=== PATIENT | female | born 1990 | race Caucasian/White ===

== ENCOUNTER 2018-09-21 20:18 | Inpatient (IN) | payer OTHER ==
[2018-09-21] MEDS ORDERED: CLINDAMYCIN 900 MG/D5W (PMX) 50 ML IVPB (21:01)
[2018-09-21] MEDS: HYDROmorphONE 0.5 MG/0.5 ML SYG IV (22:14)
[2018-09-21] MEDS: PIPER-TAZO 3.375 GM IV (PMX) 100 ML IVPB (22:14)
[2018-09-21] MEDS: ONDANSETRON 4 MG INJ IV (22:14)
[2018-09-21] MEDS: DIPHENHYDRAMINE 50 MG INJ IV ×2 (22:14→23:40)
[2018-09-21 22:25] LABS: ADD MAN DIFF? NO
[2018-09-21 22:29] LABS: ABNORMAL IP MESSAGE 1; BASOPHILS % 0.6 % (0.0-2.0); EOSINOPHILS # 0.2 10^3/ul (0.0-0.5); HEMATOCRIT 25.4 % (37.0-47.0); HEMOGLOBIN 8.2 g/dl (12.0-16.0); LYMPHOCYTES # 0.3 10^3/ul (0.8-2.9); LYMPHOCYTES % 3.7 % (15.0-51.0); MEAN CORPUSCULAR HEMOGLOBIN 29.9 pg (29.0-33.0); MEAN CORPUSCULAR HGB CONC 32.3 g/dl (32.0-37.0); MEAN CORPUSCULAR VOLUME 92.7 fl (82.0-101.0); MEAN PLATELET VOLUME 11.9 fl (7.4-10.4); MONOCYTE # 0.7 10^3/ul (0.3-0.9); MONOCYTES % 9.3 % (0.0-11.0); NEUTROPHIL # 5.9 10^3/ul (1.6-7.5); NEUTROPHILS % 83.3 % (39.0-77.0); PLATELET COUNT 139 10^3/UL (140-415); POSITIVE DIFF @See below; RED BLOOD COUNT 2.74 10^6/ul (4.20-5.40); RED CELL DISTRIBUTION WIDTH 15.5 % (11.5-14.5)
[2018-09-21 22:29] LABS: WHITE BLOOD COUNT 7.1 10^3/ul (4.8-10.8)
[2018-09-21 22:52] LABS: INR 1.07; PARTIAL THROMBOPLASTIN TIME 29.8 Sec (23.0-35.0); PT RATIO 1.1
[2018-09-21 22:54] LABS: ANION GAP 24 (5-13); BLOOD UREA NITROGEN 66 mg/dl (7-20); CALCIUM 8.4 mg/dl (8.4-10.2); CARBON DIOXIDE 19 mmol/L (21-31); CHLORIDE 92 mmol/L (97-110); CREATININE 8.86 mg/dl (0.44-1.00); Estimated GFR 5 mL/min (>60); POTASSIUM 5.1 mmol/L (3.5-5.1); SODIUM 135 mmol/L (135-144)
[2018-09-21 22:58] LABS: GLUCOSE 497 mg/dl (70-220)
[2018-09-21 23:04] LABS: TROPONIN-I < 0.012 ng/ml (0.000-0.120)
[2018-09-21] MEDS: VANCOMYCIN 1 GM (PMX) 250 ML IVPB (23:20)
[2018-09-21 23:25] LABS: MODE ROOM AIR; MetHgb Venous 0.2 %; Sample Type Blood venous; Site VENOUS LINE; Venous COHb 0.4 %; Venous Fraction OxyHgb 69.2 %; Venous Oxygen Sat 69.6 mmHG (55.0-75.0); Venous Total Hemglobin 8.7 g/dl
[2018-09-21] MEDS ORDERED: NS + KCL 40 MEQ 1,000 ML IV (23:35)
[2018-09-21] MEDS ORDERED: DEXTROSE 10 %/0.45 % NACL 1,000 ML IV (23:35)
[2018-09-21] MEDS ORDERED: SOD CHLORIDE 0.9% 1,000 ML IV (23:35)
[2018-09-21] MEDS ORDERED: D10/0.45% NACL + KCL 40 MEQ 1,000 ML IV (23:35)
[2018-09-21] MEDS: LACTATED RINGER'S 700 ML IV (23:53)
[2018-09-22] MEDS ORDERED: DEXTROSE 50% 50 ML SYRINGE IV
[2018-09-22] MEDS ORDERED: ACETAMINOPHEN 650MG/20.3ML CUP PO
[2018-09-22] MEDS ORDERED: BISACODYL (EC) 5 MG TAB PO
[2018-09-22] MEDS ORDERED: DOCUSATE SODIUM 100 MG CAP PO
[2018-09-22] MEDS: ALBUTEROL/IPRATROPIUM (NEB) 3 ML AMP NEB ×6 (01:00→20:37)
[2018-09-22] MEDS ORDERED: VANCOMYCIN IV PER PHARMACY XX (01:30)
[2018-09-22] MEDS: NS + KCL 30 MEQ 1,000 ML IV (02:09)
[2018-09-22] MEDS: INSULIN REGULAR, HUMAN 100 UNIT in SOD CHLORIDE 0.9% 100 ML IV (02:09)
[2018-09-22] MEDS: D10/0.45% NACL + KCL 30 MEQ 1,000 ML IV (02:10)
[2018-09-22] MEDS: HYDROmorphONE 1 MG/ML SYG IV ×6 (02:45→23:35)
[2018-09-22 02:54] LABS: MODE ROOM AIR; MetHgb Venous 0.3 %; Sample Type Blood venous; Site VENOUS LINE; Venous COHb 0.6 %; Venous Fraction OxyHgb 67.6 %; Venous Oxygen Sat 68.2 mmHG (55.0-75.0); Venous Total Hemglobin 8.2 g/dl
[2018-09-22] MEDS ORDERED: HYDROCODONE/APAP (5/325) TAB PO (03:00)
[2018-09-22 03:03] LABS: ANION GAP 20 (5-13); BLOOD UREA NITROGEN 66 mg/dl (7-20); CALCIUM 8.5 mg/dl (8.4-10.2); CARBON DIOXIDE 18 mmol/L (21-31); CHLORIDE 99 mmol/L (97-110); Estimated GFR 5 mL/min (>60); MAGNESIUM 2.3 mg/dl (1.7-2.5); POTASSIUM 4.9 mmol/L (3.5-5.1); SODIUM 137 mmol/L (135-144)
[2018-09-22 03:06] LABS: GLUCOSE 452 mg/dl (70-220)
[2018-09-22] MEDS ORDERED: CLONIDINE 0.3 MG/24 HR PATCH TRANSDERM (04:00)
[2018-09-22] MEDS ORDERED: DIPHENHYDRAMINE 50 MG INJ IV ×2 (04:30→12:30)
[2018-09-22] MEDS: NA BICARBONATE 8.4% 50 ML SYG IV (04:32)
[2018-09-22] MEDS: ACCU-CHEK XX ×7 (04:32→10:00)
[2018-09-22] MEDS: DIPHENHYDRAMINE 50 MG INJ IV ×4 (04:33→22:51)
[2018-09-22] MEDS: LORAZEPAM 2 MG INJ IV ×3 (04:34→20:45)
[2018-09-22 05:09] LABS: ADD MAN DIFF? NO
[2018-09-22 05:18] LABS: ABNORMAL IP MESSAGE 1; BASOPHILS % 0.5 % (0.0-2.0); EOSINOPHILS # 0.3 10^3/ul (0.0-0.5); EOSINOPHILS % 4.6 % (0.0-7.0); HEMATOCRIT 22.9 % (37.0-47.0); HEMOGLOBIN 7.5 g/dl (12.0-16.0); LYMPHOCYTES # 0.5 10^3/ul (0.8-2.9); LYMPHOCYTES % 7.5 % (15.0-51.0); MEAN CORPUSCULAR HEMOGLOBIN 30.4 pg (29.0-33.0); MEAN CORPUSCULAR HGB CONC 32.8 g/dl (32.0-37.0); MEAN CORPUSCULAR VOLUME 92.7 fl (82.0-101.0); MEAN PLATELET VOLUME 11.5 fl (7.4-10.4); MONOCYTE # 0.6 10^3/ul (0.3-0.9); MONOCYTES % 10.1 % (0.0-11.0); NEUTROPHIL # 4.7 10^3/ul (1.6-7.5); PLATELET COUNT 144 10^3/UL (140-415); RED BLOOD COUNT 2.47 10^6/ul (4.20-5.40); RED CELL DISTRIBUTION WIDTH 15.5 % (11.5-14.5)
[2018-09-22] MEDS: ONDANSETRON 4 MG INJ IV ×3 (05:27→17:48)
[2018-09-22] MEDS: INSULIN HUMAN REGULAR 100 UNIT in SOD CHLORIDE 0.9% 99 ML IV (05:30)
[2018-09-22] MEDS: PANTOPRAZOLE 40 MG INJ IV (05:31)
[2018-09-22 05:41] LABS: POSITIVE DIFF @See below
[2018-09-22 05:50] LABS: ANION GAP 19 (5-13); BLOOD UREA NITROGEN 71 mg/dl (7-20); CALCIUM 8.6 mg/dl (8.4-10.2); CARBON DIOXIDE 19 mmol/L (21-31); CHLORIDE 100 mmol/L (97-110); CREATININE 8.85 mg/dl (0.44-1.00); Estimated GFR 5 mL/min (>60); GLUCOSE 238 mg/dl (70-220); MAGNESIUM 2.3 mg/dl (1.7-2.5); PHOSPHORUS 7.5 mg/dl (2.5-4.9); POTASSIUM 4.6 mmol/L (3.5-5.1); SODIUM 138 mmol/L (135-144)
[2018-09-22 05:59] LABS: C-REACTIVE PROTEIN 5.7 mg/dl (0.0-0.9)
[2018-09-22] MEDS: VANCOMYCIN 500 MG (PMX) 100 ML IVPB (07:03)
[2018-09-22] MEDS: DEXTROSE 5%-0.45% NACL 1,000 ML IV (07:04)
[2018-09-22 07:29] LABS: ERYTHROCYTE SEDIMENTATION RATE 75 mm/Hr (0-20)
[2018-09-22] MEDS: PIPER-TAZO 2.25 GM (PMX) 50 ML IVPB ×2 (09:02→20:45)
[2018-09-22] MEDS: DEXTROSE 50% 50 ML SYRINGE IV ×2 (09:02→17:34)
[2018-09-22] MEDS ORDERED: GLUCOSE GEL 15 GRAM TUBE PO (10:30)
[2018-09-22] MEDS ORDERED: GLUCAGON 1 MG INJ IM (10:30)
[2018-09-22] MEDS ORDERED: GLUCOSE GEL 15 GRAM TUBE BUCCAL (10:30)
[2018-09-22 10:34] LABS: ANION GAP 19 (5-13); BLOOD UREA NITROGEN 73 mg/dl (7-20); CALCIUM 8.4 mg/dl (8.4-10.2); CARBON DIOXIDE 22 mmol/L (21-31); CHLORIDE 98 mmol/L (97-110); CREATININE 8.49 mg/dl (0.44-1.00); Estimated GFR 6 mL/min (>60); GLUCOSE 108 mg/dl (70-220); MAGNESIUM 2.3 mg/dl (1.7-2.5); PHOSPHORUS 8.2 mg/dl (2.5-4.9); POTASSIUM 5.4 mmol/L (3.5-5.1); SODIUM 139 mmol/L (135-144)
[2018-09-22] MEDS: INSULIN ASPART [NOVOLOG] 3 ML PEN SC ×5 (11:49→20:51)
[2018-09-22] MEDS ORDERED: DIPHENHYDRAMINE 25 MG CAP PO (12:00)
[2018-09-22] MEDS: NITROGLYCERIN (SL) 0.4 MG TAB SL ×2 (12:15→12:28)
[2018-09-22] MEDS: EPOETIN ALFA-EPBX (ESRD) 4,000 UNIT/ML VIAL SC (13:08)
[2018-09-22] MEDS: INSULIN GLARGINE [LANTus] (100 UNITS/ML) SYG SC (13:09)
[2018-09-22 13:39] LABS: ANION GAP 16 (5-13); BLOOD UREA NITROGEN 60 mg/dl (7-20); CALCIUM 6.8 mg/dl (8.4-10.2); CARBON DIOXIDE 16 mmol/L (21-31); CHLORIDE 107 mmol/L (97-110); CREATININE 7.11 mg/dl (0.44-1.00); Estimated GFR 7 mL/min (>60); GLUCOSE 210 mg/dl (70-220); MAGNESIUM 1.8 mg/dl (1.7-2.5); PHOSPHORUS 7.1 mg/dl (2.5-4.9); POTASSIUM 4.2 mmol/L (3.5-5.1); SODIUM 139 mmol/L (135-144)
[2018-09-22 16:03] LABS: ANION GAP 17 (5-13); BLOOD UREA NITROGEN 76 mg/dl (7-20); CALCIUM 8.9 mg/dl (8.4-10.2); CARBON DIOXIDE 22 mmol/L (21-31); CHLORIDE 100 mmol/L (97-110); CREATININE 9.36 mg/dl (0.44-1.00); Estimated GFR 5 mL/min (>60); GLUCOSE 111 mg/dl (70-220); MAGNESIUM 2.4 mg/dl (1.7-2.5); PHOSPHORUS 8.2 mg/dl (2.5-4.9); POTASSIUM 5.1 mmol/L (3.5-5.1); SODIUM 139 mmol/L (135-144)
[2018-09-22] MEDS: GLUCOSE GEL 15 GRAM TUBE PO (17:16)
[2018-09-22] MEDS ORDERED: DIPHENHYDRAMINE 50 MG INJ IM (17:30)
[2018-09-22] MEDS: HYDROmorphONE 0.5 MG/0.5 ML SYG IV (23:25)
[2018-09-22] MEDS: hydrALAzine 20 MG INJ IV (23:36)
[2018-09-23] MEDS: morphine 2 MG INJ IV ×2 (01:33→10:18)
[2018-09-23] MEDS: ALBUTEROL/IPRATROPIUM (NEB) 3 ML AMP NEB ×3 (01:54→08:10)
[2018-09-23] MEDS: LORAZEPAM 2 MG INJ IV ×4 (02:28→22:57)
[2018-09-23] MEDS: ONDANSETRON 4 MG INJ IV ×4 (02:28→10:47)
[2018-09-23] MEDS: hydrALAzine 20 MG INJ IV ×5 (02:29→15:41)
[2018-09-23] MEDS: ACCU-CHEK XX (02:29)
[2018-09-23] MEDS: HYDROmorphONE 1 MG/ML SYG IV ×2 (03:53→05:23)
[2018-09-23] MEDS: DIPHENHYDRAMINE 50 MG INJ IV ×3 (04:12→11:42)
[2018-09-23] MEDS ORDERED: AMLODIPINE 10 MG TAB PO (05:00)
[2018-09-23 05:19] LABS: ADD MAN DIFF? NO
[2018-09-23 05:22] LABS: ABNORMAL IP MESSAGE 1; BASOPHIL # 0.1 10^3/ul (0.0-0.1); BASOPHILS % 0.7 % (0.0-2.0); EOSINOPHILS # 0.4 10^3/ul (0.0-0.5); EOSINOPHILS % 4.8 % (0.0-7.0); HEMATOCRIT 23.1 % (37.0-47.0); HEMOGLOBIN 7.6 g/dl (12.0-16.0); LYMPHOCYTES # 0.6 10^3/ul (0.8-2.9); MEAN CORPUSCULAR HEMOGLOBIN 30.5 pg (29.0-33.0); MEAN CORPUSCULAR HGB CONC 32.9 g/dl (32.0-37.0); MEAN CORPUSCULAR VOLUME 92.8 fl (82.0-101.0); MEAN PLATELET VOLUME 11.1 fl (7.4-10.4); MONOCYTE # 0.9 10^3/ul (0.3-0.9); MONOCYTES % 12.4 % (0.0-11.0); NEUTROPHIL # 5.4 10^3/ul (1.6-7.5); NEUTROPHILS % 73.8 % (39.0-77.0); PLATELET COUNT 177 10^3/UL (140-415); RED BLOOD COUNT 2.49 10^6/ul (4.20-5.40); RED CELL DISTRIBUTION WIDTH 15.4 % (11.5-14.5)
[2018-09-23 05:22] LABS: WHITE BLOOD COUNT 7.3 10^3/ul (4.8-10.8)
[2018-09-23 05:33] LABS: POSITIVE DIFF @See below
[2018-09-23 05:54] LABS: ANION GAP 22 (5-13); BLOOD UREA NITROGEN 80 mg/dl (7-20); CALCIUM 8.8 mg/dl (8.4-10.2); CARBON DIOXIDE 19 mmol/L (21-31); CHLORIDE 97 mmol/L (97-110); CREATININE 9.47 mg/dl (0.44-1.00); Estimated GFR 5 mL/min (>60); GLUCOSE 166 mg/dl (70-220); POTASSIUM 5.5 mmol/L (3.5-5.1); SODIUM 138 mmol/L (135-144)
[2018-09-23] MEDS: PANTOPRAZOLE 40 MG INJ IV (06:07)
[2018-09-23 08:38] LABS: HEPATITIS B SURFACE ANTIBODY POSITIVE (NEGATIVE)
[2018-09-23] MEDS: INSULIN ASPART [NOVOLOG] 3 ML PEN SC ×5 (09:00→21:00)
[2018-09-23] MEDS: CLONIDINE 0.3 MG/24 HR PATCH TRANSDERM (10:19)
[2018-09-23] MEDS: INSULIN GLARGINE [LANTus] (100 UNITS/ML) SYG SC (10:20)
[2018-09-23 10:27] LABS: HEPATITIS B SURFACE ANTIGEN NEGATIVE (NEGATIVE)
[2018-09-23] MEDS ORDERED: DIPHENHYDRAMINE 25 MG CAP PO (10:30)
[2018-09-23] MEDS: HYDROmorphONE 0.5 MG/0.5 ML SYG IV ×4 (11:42→23:34)
[2018-09-23] MEDS: HEPARIN 1000 UNITS/ML 10 ML INJ CATHETER (11:50)
[2018-09-23] MEDS ORDERED: HYDROmorphONE 2 MG TAB PO (14:00)
[2018-09-23] MEDS: LABETALOL 200 MG TAB PO ×2 (14:00→21:00)
[2018-09-23] MEDS ORDERED: SPIRONOLACTONE 50 MG TAB PO (14:00)
[2018-09-23] MEDS: PANTOPRAZOLE (EC) 40 MG TAB PO ×2 (14:00→21:00)
[2018-09-23] MEDS ORDERED: ONDANSETRON 4 MG INJ IV (14:00)
[2018-09-23] MEDS: LEVALBUTEROL (NEB) 0.63 MG/3 ML AMP HHN ×3 (14:24→21:46)
[2018-09-23] MEDS ORDERED: CA CARBONATE (250 MG/ML) 5ML CUP PO (15:00)
[2018-09-23] MEDS: PIPER-TAZO 2.25 GM (PMX) 50 ML IVPB ×2 (15:41→20:48)
[2018-09-23] MEDS: ONDANSETRON INJ 8 MG in SOD CHLORIDE 0.9% 50 ML IV ×2 (17:14→22:03)
[2018-09-23] MEDS: niCARdipine-NS 0.1MG/ML DRIP 200 ML IV ×2 (18:14→19:44)
[2018-09-23] MEDS: TRIMETHOBENZAMIDE 100 MG/ML VIAL IM (18:21)
[2018-09-23] MEDS: niCARdipine 50 MG in SOD CHLORIDE 0.9% 480 ML IV (20:49)
[2018-09-23] MEDS: SPIRONOLACTONE 25 MG TAB PO (21:00)
[2018-09-23] MEDS: LABETALOL HCL 20MG INJ IV (23:42)
[2018-09-24] MEDS: LEVALBUTEROL (NEB) 0.63 MG/3 ML AMP HHN ×3 (01:00→08:24)
[2018-09-24] MEDS: DEXAMETHASONE 4 MG/ML 1 ML INJ IV (01:30)
[2018-09-24] MEDS ORDERED: AL HYDROX/MG HYDROX/SIMETH 30 ML CUP PO (01:30)
[2018-09-24] MEDS: ACCU-CHEK XX (02:00)
[2018-09-24] MEDS: niCARdipine 50 MG in SOD CHLORIDE 0.9% 480 ML IV (02:23)
[2018-09-24] MEDS: HYDROmorphONE 0.5 MG/0.5 ML SYG IV ×6 (03:19→18:47)
[2018-09-24] MEDS: LORAZEPAM 2 MG INJ IV ×5 (04:36→20:55)
[2018-09-24 05:12] LABS: ADD MAN DIFF? NO
[2018-09-24 05:19] LABS: ABNORMAL IP MESSAGE 1; BASOPHIL # 0.1 10^3/ul (0.0-0.1); BASOPHILS % 0.6 % (0.0-2.0); EOSINOPHILS # 0.1 10^3/ul (0.0-0.5); EOSINOPHILS % 1.1 % (0.0-7.0); HEMATOCRIT 24.1 % (37.0-47.0); HEMOGLOBIN 7.6 g/dl (12.0-16.0); LYMPHOCYTES # 0.3 10^3/ul (0.8-2.9); LYMPHOCYTES % 2.4 % (15.0-51.0); MEAN CORPUSCULAR HEMOGLOBIN 30.5 pg (29.0-33.0); MEAN CORPUSCULAR HGB CONC 31.5 g/dl (32.0-37.0); MEAN CORPUSCULAR VOLUME 96.8 fl (82.0-101.0); MEAN PLATELET VOLUME 10.9 fl (7.4-10.4); MONOCYTE # 0.6 10^3/ul (0.3-0.9); MONOCYTES % 5.1 % (0.0-11.0); NEUTROPHIL # 10.6 10^3/ul (1.6-7.5); NEUTROPHILS % 90.5 % (39.0-77.0); PLATELET COUNT 200 10^3/UL (140-415); RED BLOOD COUNT 2.49 10^6/ul (4.20-5.40); RED CELL DISTRIBUTION WIDTH 15.7 % (11.5-14.5)
[2018-09-24 05:19] LABS: WHITE BLOOD COUNT 11.8 10^3/ul (4.8-10.8)
[2018-09-24 05:21] LABS: POSITIVE DIFF @See below
[2018-09-24 05:47] LABS: ANION GAP 28 (5-13); BLOOD UREA NITROGEN 42 mg/dl (7-20); CALCIUM 9.7 mg/dl (8.4-10.2); CARBON DIOXIDE 15 mmol/L (21-31); CHLORIDE 100 mmol/L (97-110); CREATININE 7.09 mg/dl (0.44-1.00); Estimated GFR 7 mL/min (>60); GLUCOSE 269 mg/dl (70-220); POTASSIUM 4.7 mmol/L (3.5-5.1); SODIUM 143 mmol/L (135-144)
[2018-09-24 06:03] LABS: MAGNESIUM 2.5 mg/dl (1.7-2.5)
[2018-09-24 06:08] LABS: VANCOMYCIN,RANDOM 16.5 ug/ml
[2018-09-24] MEDS ORDERED: INSULIN ASPART [NOVOLOG] 3 ML PEN SC (07:35)
[2018-09-24] MEDS: INSULIN ASPART [NOVOLOG] 3 ML PEN SC ×7 (08:07→20:41)
[2018-09-24] MEDS: PIPER-TAZO 2.25 GM (PMX) 50 ML IVPB ×2 (08:37→20:55)
[2018-09-24] MEDS: FAMOTIDINE 20 MG INJ IV (08:37)
[2018-09-24] MEDS: SPIRONOLACTONE 25 MG TAB PO ×2 (08:51→20:29)
[2018-09-24] MEDS: LABETALOL 200 MG TAB PO ×2 (08:52→20:29)
[2018-09-24] MEDS: PANTOPRAZOLE (EC) 40 MG TAB PO (08:52)
[2018-09-24] MEDS ORDERED: AMLODIPINE 10 MG TAB PO (09:00)
[2018-09-24] MEDS ORDERED: LINAGLIPTIN 5 MG TABLET PO (09:00)
[2018-09-24] MEDS: ONDANSETRON INJ 8 MG in SOD CHLORIDE 0.9% 50 ML IV (09:20)
[2018-09-24] MEDS: INSULIN GLARGINE [LANTus] (100 UNITS/ML) SYG SC (10:34)
[2018-09-24] MEDS: PANTOPRAZOLE 40 MG INJ IV ×2 (10:53→17:09)
[2018-09-24] MEDS: hydrALAzine 20 MG INJ IV ×3 (10:54→21:10)
[2018-09-24] MEDS ORDERED: LEVALBUTEROL (NEB) 0.63 MG/3 ML AMP HHN (11:00)
[2018-09-24] MEDS ORDERED: ENALAPRILAT 1.25 MG INJ IV (11:00)
[2018-09-24] MEDS ORDERED: LIDOCAINE 1% (MPF) 5 ML VIAL SC (11:00)
[2018-09-24] MEDS: LABETALOL HCL 20MG INJ IV ×2 (13:38→17:24)
[2018-09-24] MEDS: VANCOMYCIN 1 GM 250 ML IVPB (15:15)
[2018-09-24] MEDS: METHYLNALTREXONE 12 MG/0.6 ML VIAL SC (15:56)
[2018-09-24 18:21] LABS: PTH CALCIUM 8.4 mg/dL (8.6-10.2)
[2018-09-24] MEDS: NPH, HUMAN INSULIN ISOPHANE 3ML VIAL SC (22:17)
[2018-09-25] MEDS: HYDROmorphONE 0.5 MG/0.5 ML SYG IV ×6 (00:31→21:14)
[2018-09-25] MEDS: LORAZEPAM 2 MG INJ IV ×3 (01:07→12:24)
[2018-09-25] MEDS: ACCU-CHEK XX (02:00)
[2018-09-25] MEDS: PANTOPRAZOLE 40 MG INJ IV ×2 (05:55→18:28)
[2018-09-25 06:50] LABS: ADD MAN DIFF? NO
[2018-09-25 07:20] LABS: ANION GAP 25 (5-13); BLOOD UREA NITROGEN 57 mg/dl (7-20); CALCIUM 8.7 mg/dl (8.4-10.2); CARBON DIOXIDE 17 mmol/L (21-31); CHLORIDE 100 mmol/L (97-110); CREATININE 8.19 mg/dl (0.44-1.00); Estimated GFR 6 mL/min (>60); GLUCOSE 279 mg/dl (70-220); MAGNESIUM 2.7 mg/dl (1.7-2.5); PHOSPHORUS 8.2 mg/dl (2.5-4.9); POTASSIUM 4.8 mmol/L (3.5-5.1); SODIUM 142 mmol/L (135-144)
[2018-09-25 08:44] LABS: ABNORMAL IP MESSAGE 1; BASOPHILS % 0.4 % (0.0-2.0); EOSINOPHILS # 0.2 10^3/ul (0.0-0.5); EOSINOPHILS % 2.4 % (0.0-7.0); HEMATOCRIT 22.1 % (37.0-47.0); HEMOGLOBIN 7.2 g/dl (12.0-16.0); LYMPHOCYTES # 0.4 10^3/ul (0.8-2.9); LYMPHOCYTES % 4.3 % (15.0-51.0); MEAN CORPUSCULAR HEMOGLOBIN 30.8 pg (29.0-33.0); MEAN CORPUSCULAR HGB CONC 32.6 g/dl (32.0-37.0); MEAN CORPUSCULAR VOLUME 94.4 fl (82.0-101.0); MEAN PLATELET VOLUME 10.7 fl (7.4-10.4); MONOCYTE # 0.8 10^3/ul (0.3-0.9); MONOCYTES % 8.7 % (0.0-11.0); NEUTROPHIL # 7.5 10^3/ul (1.6-7.5); NEUTROPHILS % 83.9 % (39.0-77.0); PLATELET COUNT 215 10^3/UL (140-415); RED BLOOD COUNT 2.34 10^6/ul (4.20-5.40); RED CELL DISTRIBUTION WIDTH 15.8 % (11.5-14.5)
[2018-09-25 08:47] LABS: POSITIVE DIFF @See below
[2018-09-25 08:57] LABS: PTH INTACT 844 pg/mL (14-64)
[2018-09-25] MEDS: PIPER-TAZO 2.25 GM (PMX) 50 ML IVPB (09:11)
[2018-09-25] MEDS: SPIRONOLACTONE 25 MG TAB PO ×2 (09:12→20:20)
[2018-09-25] MEDS: LABETALOL 200 MG TAB PO ×2 (09:12→20:19)
[2018-09-25] MEDS: INSULIN GLARGINE [LANTus] (100 UNITS/ML) SYG SC ×2 (09:37→14:38)
[2018-09-25] MEDS: INSULIN ASPART [NOVOLOG] 3 ML PEN SC ×7 (09:37→21:00)
[2018-09-25] MEDS ORDERED: DIPHENHYDRAMINE 50 MG INJ (09:55)
[2018-09-25] MEDS: DIPHENHYDRAMINE 50 MG INJ IV ×2 (10:15→11:36)
[2018-09-25] MEDS: HEPARIN 1000 UNITS/ML 10 ML INJ CATHETER (12:23)
[2018-09-25] MEDS: ONDANSETRON INJ 8 MG in SOD CHLORIDE 0.9% 50 ML IV (12:31)
[2018-09-25 14:53] LABS: HEMATOCRIT 21.8 % (37.0-47.0)
[2018-09-25] MEDS: EPOETIN ALFA-EPBX (ESRD) 10,000 UNIT/ML VIAL SC (17:44)
[2018-09-25] MEDS: IOHEXOL 300MG/ML 150 ML BTL (21:30)
[2018-09-26] MEDS: DIPHENHYDRAMINE 50 MG INJ IV ×5 (00:23→20:30)
[2018-09-26] MEDS: hydrALAzine 20 MG INJ IV ×4 (00:28→22:10)
[2018-09-26] MEDS: LORAZEPAM 2 MG INJ IV (00:36)
[2018-09-26] MEDS: HYDROmorphONE 0.5 MG/0.5 ML SYG IV ×6 (01:06→22:11)
[2018-09-26] MEDS: ACCU-CHEK XX (01:06)
[2018-09-26] MEDS: PANTOPRAZOLE 40 MG INJ IV ×2 (04:49→17:58)
[2018-09-26] MEDS: LABETALOL HCL 20MG INJ IV ×3 (07:28→18:08)
[2018-09-26] MEDS: INSULIN ASPART [NOVOLOG] 3 ML PEN SC ×7 (08:07→20:30)
[2018-09-26 08:35] LABS: WHITE BLOOD COUNT 5.5 10^3/ul (4.8-10.8)
[2018-09-26 08:35] LABS: ABNORMAL IP MESSAGE 1; HEMATOCRIT 20.2 % (37.0-47.0); MEAN CORPUSCULAR HGB CONC 32.7 g/dl (32.0-37.0); MEAN CORPUSCULAR VOLUME 94.8 fl (82.0-101.0); MEAN PLATELET VOLUME 10.1 fl (7.4-10.4); PLATELET COUNT 193 10^3/UL (140-415); RED BLOOD COUNT 2.13 10^6/ul (4.20-5.40); RED CELL DISTRIBUTION WIDTH 15.8 % (11.5-14.5)
[2018-09-26] MEDS: SPIRONOLACTONE 25 MG TAB PO ×2 (09:06→20:28)
[2018-09-26] MEDS: LABETALOL 200 MG TAB PO ×2 (09:07→20:30)
[2018-09-26 09:14] LABS: ANION GAP 14 (5-13); BLOOD UREA NITROGEN 38 mg/dl (7-20); CALCIUM 8.9 mg/dl (8.4-10.2); CARBON DIOXIDE 26 mmol/L (21-31); CHLORIDE 101 mmol/L (97-110); CREATININE 6.05 mg/dl (0.44-1.00); Estimated GFR 8 mL/min (>60); GLUCOSE 250 mg/dl (70-220); POTASSIUM 3.9 mmol/L (3.5-5.1); SODIUM 141 mmol/L (135-144)
[2018-09-26 09:27] LABS: ADD MAN DIFF? YES; HEMOGLOBIN 6.6 g/dl (12.0-16.0); POSITIVE DIFF @See below
[2018-09-26 10:02] LABS: ANISOCYTOSIS 1+ (0-0); EOSINOPHILS % (M) 4 % (0-7); LYMPHOCYTES #M 0.6 10^3/ul (0.8-2.9); LYMPHOCYTES % (M) 11 % (15-51); MONOCYTE #M 0.4 10^3/ul (0.3-0.9); MONOCYTES % (M) 8 % (0-11); PLATELET ESTIMATE NORMAL; POLYCHROMASIA 3+ (0-0); SEGMENTED NEUTROPHILS (M) % 77 % (39-77); SMUDGE%M 6 % (0-0)
[2018-09-26] MEDS: INSULIN GLARGINE [LANTus] (100 UNITS/ML) SYG SC (10:13)
[2018-09-26] MEDS: HEPARIN 1000 UNITS/ML 10 ML INJ CATHETER (13:20)
[2018-09-26] MEDS: TRIMETHOBENZAMIDE 100 MG/ML VIAL IM (13:24)
[2018-09-26 14:13] LABS: IRON 43 ug/dl (35-150)
[2018-09-26 14:22] LABS: % IRON SATURATION 28 % SAT (22-52); TOTAL IRON BINDING CAPACITY 156 ug/dl (241-421)
[2018-09-26 14:25] LABS: IMMEDIATE SPIN CROSSMATCH 1 2
[2018-09-26] MEDS: SOD CHLORIDE 0.9% 250 ML IV* (14:40)
[2018-09-26] MEDS: METHYLNALTREXONE 12 MG/0.6 ML VIAL SC (15:30)
[2018-09-26] MEDS: ONDANSETRON INJ 8 MG in SOD CHLORIDE 0.9% 50 ML IV (17:36)
[2018-09-26] MEDS: ERGOCALCIFEROL 50,000 UNIT CAP PO (20:30)
[2018-09-27] MEDS: LOPERAMIDE 2 MG CAP PO (00:22)
[2018-09-27] MEDS: LABETALOL HCL 20MG INJ IV ×5 (01:29→17:49)
[2018-09-27] MEDS: ACCU-CHEK XX (02:00)
[2018-09-27] MEDS: HYDROmorphONE 0.5 MG/0.5 ML SYG IV ×4 (02:14→14:08)
[2018-09-27] MEDS: hydrALAzine 20 MG INJ IV ×6 (02:15→17:49)
[2018-09-27] MEDS: DIPHENHYDRAMINE 50 MG INJ IV ×6 (04:18→22:46)
[2018-09-27] MEDS: PANTOPRAZOLE 40 MG INJ IV ×2 (06:12→18:40)
[2018-09-27 07:02] LABS: ADD MAN DIFF? NO
[2018-09-27 07:10] LABS: ABNORMAL IP MESSAGE 1; BASOPHILS % 0.9 % (0.0-2.0); EOSINOPHILS # 0.3 10^3/ul (0.0-0.5); EOSINOPHILS % 7.2 % (0.0-7.0); HEMATOCRIT 29.1 % (37.0-47.0); HEMOGLOBIN 9.6 g/dl (12.0-16.0); LYMPHOCYTES # 0.3 10^3/ul (0.8-2.9); LYMPHOCYTES % 7.4 % (15.0-51.0); MEAN CORPUSCULAR HEMOGLOBIN 29.9 pg (29.0-33.0); MEAN CORPUSCULAR VOLUME 90.7 fl (82.0-101.0); MEAN PLATELET VOLUME 9.7 fl (7.4-10.4); MONOCYTE # 0.5 10^3/ul (0.3-0.9); MONOCYTES % 10.4 % (0.0-11.0); NEUTROPHIL # 3.3 10^3/ul (1.6-7.5); NEUTROPHILS % 73.6 % (39.0-77.0); PLATELET COUNT 200 10^3/UL (140-415); RED BLOOD COUNT 3.21 10^6/ul (4.20-5.40); RED CELL DISTRIBUTION WIDTH 16.6 % (11.5-14.5)
[2018-09-27 07:10] LABS: WHITE BLOOD COUNT 4.4 10^3/ul (4.8-10.8)
[2018-09-27 07:26] LABS: POSITIVE DIFF @See below
[2018-09-27 07:33] LABS: ANION GAP 14 (5-13); BLOOD UREA NITROGEN 28 mg/dl (7-20); CARBON DIOXIDE 24 mmol/L (21-31); CHLORIDE 102 mmol/L (97-110); CREATININE 3.93 mg/dl (0.44-1.00); Estimated GFR 14 mL/min (>60); GLUCOSE 230 mg/dl (70-220); POTASSIUM 4.3 mmol/L (3.5-5.1); SODIUM 140 mmol/L (135-144)
[2018-09-27] MEDS: INSULIN ASPART [NOVOLOG] 3 ML PEN SC ×7 (07:55→20:46)
[2018-09-27] MEDS: SPIRONOLACTONE 25 MG TAB PO ×2 (08:28→23:27)
[2018-09-27] MEDS: LABETALOL 200 MG TAB PO ×2 (08:31→23:26)
[2018-09-27] MEDS: ONDANSETRON INJ 8 MG in SOD CHLORIDE 0.9% 50 ML IV ×3 (09:49→21:46)
[2018-09-27] MEDS: INSULIN GLARGINE [LANTus] (100 UNITS/ML) SYG SC ×2 (10:42→18:08)
[2018-09-27 11:24] LABS: OCCULT BLOOD STOOL POSITIVE (NEGATIVE)
[2018-09-27] MEDS: TRIMETHOBENZAMIDE 100 MG/ML VIAL IM (13:55)
[2018-09-27] MEDS: LOSARTAN 25 MG TAB PO (15:20)
[2018-09-27] MEDS: HYDROmorphONE 1 MG/ML SYG IV ×3 (15:20→21:37)
[2018-09-27] MEDS: HYOSCYAMINE 0.125 MG SUBL TAB PO ×2 (17:21→23:28)
[2018-09-27] MEDS: SUCRALFATE 1 GM TAB PO ×2 (17:21→23:26)
[2018-09-27] MEDS: EPOETIN ALFA-EPBX (ESRD) 10,000 UNIT/ML VIAL SC (18:39)
[2018-09-27] MEDS: HEPARIN 1000 UNITS/ML 10 ML INJ CATHETER (23:22)
[2018-09-28] MEDS: LOPERAMIDE 2 MG CAP PO (00:21)
[2018-09-28] MEDS: HYDROmorphONE 1 MG/ML SYG IV ×7 (00:26→21:02)
[2018-09-28] MEDS: DIPHENHYDRAMINE 50 MG INJ IV ×6 (01:15→21:04)
[2018-09-28] MEDS: hydrALAzine 20 MG INJ IV ×2 (01:19→05:42)
[2018-09-28] MEDS: ACCU-CHEK XX (01:21)
[2018-09-28] MEDS: LABETALOL HCL 20MG INJ IV (02:38)
[2018-09-28] MEDS: PANTOPRAZOLE 40 MG INJ IV ×2 (05:05→18:28)
[2018-09-28] MEDS: HYOSCYAMINE 0.125 MG SUBL TAB PO ×3 (05:06→23:06)
[2018-09-28] MEDS: ONDANSETRON INJ 8 MG in SOD CHLORIDE 0.9% 50 ML IV ×2 (05:37→14:17)
[2018-09-28 06:53] LABS: ADD MAN DIFF? NO
[2018-09-28 06:57] LABS: ABNORMAL IP MESSAGE 1; BASOPHIL # 0.1 10^3/ul (0.0-0.1); BASOPHILS % 1.3 % (0.0-2.0); EOSINOPHILS # 0.3 10^3/ul (0.0-0.5); EOSINOPHILS % 6.2 % (0.0-7.0); HEMATOCRIT 29.8 % (37.0-47.0); HEMOGLOBIN 9.6 g/dl (12.0-16.0); LYMPHOCYTES # 0.3 10^3/ul (0.8-2.9); LYMPHOCYTES % 5.9 % (15.0-51.0); MEAN CORPUSCULAR HEMOGLOBIN 29.5 pg (29.0-33.0); MEAN CORPUSCULAR HGB CONC 32.2 g/dl (32.0-37.0); MEAN CORPUSCULAR VOLUME 91.7 fl (82.0-101.0); MEAN PLATELET VOLUME 9.8 fl (7.4-10.4); MONOCYTE # 0.4 10^3/ul (0.3-0.9); MONOCYTES % 8.5 % (0.0-11.0); NEUTROPHIL # 3.7 10^3/ul (1.6-7.5); NEUTROPHILS % 77.9 % (39.0-77.0); PLATELET COUNT 210 10^3/UL (140-415); RED BLOOD COUNT 3.25 10^6/ul (4.20-5.40); RED CELL DISTRIBUTION WIDTH 16.4 % (11.5-14.5)
[2018-09-28 06:57] LABS: WHITE BLOOD COUNT 4.7 10^3/ul (4.8-10.8)
[2018-09-28 07:31] LABS: POSITIVE DIFF @See below
[2018-09-28 07:37] LABS: ANION GAP 15 (5-13); BLOOD UREA NITROGEN 18 mg/dl (7-20); CALCIUM 9.4 mg/dl (8.4-10.2); CARBON DIOXIDE 24 mmol/L (21-31); CHLORIDE 103 mmol/L (97-110); Estimated GFR 18 mL/min (>60); GLUCOSE 329 mg/dl (70-220); POTASSIUM 4.1 mmol/L (3.5-5.1); SODIUM 142 mmol/L (135-144)
[2018-09-28] MEDS: INSULIN ASPART [NOVOLOG] 3 ML PEN SC ×7 (07:55→20:39)
[2018-09-28] MEDS: SPIRONOLACTONE 25 MG TAB PO (09:14)
[2018-09-28] MEDS: SUCRALFATE 1 GM TAB PO ×4 (09:15→21:01)
[2018-09-28] MEDS: INSULIN GLARGINE [LANTus] (100 UNITS/ML) SYG SC (09:27)
[2018-09-28] MEDS: LOSARTAN 50 MG TAB PO ×2 (10:44→14:10)
[2018-09-28] MEDS: LABETALOL 200 MG TAB PO ×2 (10:44→23:04)
[2018-09-28] MEDS ORDERED: NIFEdipine (XL) 60 MG TAB PO (11:30)
[2018-09-28] MEDS: TRIMETHOBENZAMIDE 100 MG/ML VIAL IM (11:43)
[2018-09-28] MEDS: METHYLNALTREXONE 12 MG/0.6 ML VIAL SC (15:30)
[2018-09-28] MEDS: SPIRONOLACTONE 50 MG TAB PO (18:28)
[2018-09-29] MEDS: HYDROmorphONE 1 MG/ML SYG IV ×8 (00:15→21:06)
[2018-09-29] MEDS ORDERED: DIPHENHYDRAMINE 50 MG CAP PO (01:30)
[2018-09-29] MEDS: DIPHENHYDRAMINE 50 MG INJ IV ×3 (01:37→11:16)
[2018-09-29] MEDS: ACCU-CHEK XX (02:00)
[2018-09-29] MEDS: PANTOPRAZOLE 40 MG INJ IV ×2 (06:23→18:42)
[2018-09-29] MEDS: HYOSCYAMINE 0.125 MG SUBL TAB PO ×3 (06:23→21:09)
[2018-09-29] MEDS: SPIRONOLACTONE 50 MG TAB PO ×2 (06:23→18:42)
[2018-09-29 06:39] LABS: ADD MAN DIFF? NO
[2018-09-29 06:47] LABS: ABNORMAL IP MESSAGE 1; BASOPHIL # 0.1 10^3/ul (0.0-0.1); BASOPHILS % 1.2 % (0.0-2.0); EOSINOPHILS # 0.2 10^3/ul (0.0-0.5); EOSINOPHILS % 5.3 % (0.0-7.0); HEMATOCRIT 28.1 % (37.0-47.0); LYMPHOCYTES # 0.3 10^3/ul (0.8-2.9); LYMPHOCYTES % 7.2 % (15.0-51.0); MEAN CORPUSCULAR HEMOGLOBIN 29.7 pg (29.0-33.0); MEAN CORPUSCULAR VOLUME 92.7 fl (82.0-101.0); MEAN PLATELET VOLUME 9.6 fl (7.4-10.4); MONOCYTE # 0.4 10^3/ul (0.3-0.9); MONOCYTES % 9.9 % (0.0-11.0); NEUTROPHIL # 3.3 10^3/ul (1.6-7.5); NEUTROPHILS % 76.4 % (39.0-77.0); PLATELET COUNT 193 10^3/UL (140-415); RED BLOOD COUNT 3.03 10^6/ul (4.20-5.40); RED CELL DISTRIBUTION WIDTH 16.2 % (11.5-14.5)
[2018-09-29 06:47] LABS: WHITE BLOOD COUNT 4.3 10^3/ul (4.8-10.8)
[2018-09-29 06:56] LABS: POSITIVE DIFF @See below
[2018-09-29 07:02] LABS: PHOSPHORUS 3.9 mg/dl (2.5-4.9)
[2018-09-29 07:02] LABS: MAGNESIUM 2.2 mg/dl (1.7-2.5)
[2018-09-29 07:03] LABS: ANION GAP 16 (5-13); BLOOD UREA NITROGEN 16 mg/dl (7-20); CALCIUM 9.4 mg/dl (8.4-10.2); CARBON DIOXIDE 22 mmol/L (21-31); CHLORIDE 103 mmol/L (97-110); CREATININE 3.64 mg/dl (0.44-1.00); Estimated GFR 15 mL/min (>60); GLUCOSE 345 mg/dl (70-220); SODIUM 141 mmol/L (135-144)
[2018-09-29] MEDS: INSULIN ASPART [NOVOLOG] 3 ML PEN SC ×7 (08:30→20:37)
[2018-09-29] MEDS: SUCRALFATE 1 GM TAB PO ×4 (09:00→20:38)
[2018-09-29] MEDS: TRIMETHOBENZAMIDE 100 MG/ML VIAL IM ×2 (09:04→17:21)
[2018-09-29] MEDS: LOSARTAN 50 MG TAB PO (09:16)
[2018-09-29] MEDS: LABETALOL 200 MG TAB PO ×2 (09:18→20:39)
[2018-09-29] MEDS: INSULIN GLARGINE [LANTus] (100 UNITS/ML) SYG SC (09:29)
[2018-09-29] MEDS: HEPARIN 1000 UNITS/ML 10 ML INJ CATHETER (11:06)
[2018-09-29] MEDS: ONDANSETRON INJ 8 MG in SOD CHLORIDE 0.9% 50 ML IV ×2 (11:16→20:38)
[2018-09-29 17:43] LABS: HIV 1&2 ANTIBODY NEGATIVE (NEGATIVE)
[2018-09-29 18:20] LABS: COMPLEMENT C3 82 mg/dl (88-165); COMPLEMENT C4 48 mg/dl (14-44)
[2018-09-30] MEDS: DIPHENHYDRAMINE 50 MG INJ IV ×5 (00:09→23:53)
[2018-09-30] MEDS: HYDROmorphONE 1 MG/ML SYG IV ×9 (00:09→23:53)
[2018-09-30] MEDS: ACCU-CHEK XX (02:00)
[2018-09-30] MEDS: ONDANSETRON INJ 8 MG in SOD CHLORIDE 0.9% 50 ML IV ×2 (03:44→13:26)
[2018-09-30] MEDS: hydrALAzine 20 MG INJ IV (04:17)
[2018-09-30 04:51] LABS: AADO2 Arterial 32.9 mmHg (7.0-24.0); Allen Test ACCEPTAB; Arterial Base Excess -0.5 mmol/L (-3.0-3); Arterial Blood Gas Oxygen Sat 97.9 mmHG (95.0-98.0); Arterial COHb 0.8 % (0.0-3.0); Arterial Fraction of Oxyhgb 96.8 % (93.0-99.0); Arterial HCO3 24.2 mmol/L (22.0-26.0); Arterial MetHb 0.3 % (0.0-1.5); Arterial pCO2 39.7 mmhg (35-45); MODE NASAL CANNULA; Site Right Radial
[2018-09-30] MEDS: SPIRONOLACTONE 50 MG TAB PO ×2 (06:07→18:41)
[2018-09-30] MEDS: HYOSCYAMINE 0.125 MG SUBL TAB PO ×3 (06:07→21:28)
[2018-09-30] MEDS: PANTOPRAZOLE 40 MG INJ IV ×2 (06:07→18:40)
[2018-09-30 08:14] LABS: ADD MAN DIFF? NO
[2018-09-30 08:20] LABS: ABNORMAL IP MESSAGE 1; BASOPHIL # 0.1 10^3/ul (0.0-0.1); BASOPHILS % 0.9 % (0.0-2.0); EOSINOPHILS # 0.3 10^3/ul (0.0-0.5); EOSINOPHILS % 4.6 % (0.0-7.0); HEMOGLOBIN 9.4 g/dl (12.0-16.0); LYMPHOCYTES # 0.4 10^3/ul (0.8-2.9); MEAN CORPUSCULAR HEMOGLOBIN 29.7 pg (29.0-33.0); MEAN CORPUSCULAR HGB CONC 31.3 g/dl (32.0-37.0); MEAN CORPUSCULAR VOLUME 94.6 fl (82.0-101.0); MEAN PLATELET VOLUME 9.9 fl (7.4-10.4); MONOCYTE # 0.5 10^3/ul (0.3-0.9); MONOCYTES % 8.9 % (0.0-11.0); NEUTROPHIL # 4.6 10^3/ul (1.6-7.5); NEUTROPHILS % 79.4 % (39.0-77.0); PLATELET COUNT 206 10^3/UL (140-415); RED BLOOD COUNT 3.17 10^6/ul (4.20-5.40); RED CELL DISTRIBUTION WIDTH 16.3 % (11.5-14.5)
[2018-09-30 08:20] LABS: WHITE BLOOD COUNT 5.8 10^3/ul (4.8-10.8)
[2018-09-30 08:27] LABS: POSITIVE DIFF @See below
[2018-09-30] MEDS: SUCRALFATE 1 GM TAB PO ×4 (08:32→21:25)
[2018-09-30] MEDS: LOSARTAN 50 MG TAB PO (08:34)
[2018-09-30] MEDS: LABETALOL 200 MG TAB PO ×2 (08:34→21:27)
[2018-09-30] MEDS: CLONIDINE 0.3 MG/24 HR PATCH TRANSDERM (08:35)
[2018-09-30 08:37] LABS: ANION GAP 15 (5-13); BLOOD UREA NITROGEN 14 mg/dl (7-20); CALCIUM 9.5 mg/dl (8.4-10.2); CARBON DIOXIDE 23 mmol/L (21-31); CHLORIDE 103 mmol/L (97-110); CREATININE 3.92 mg/dl (0.44-1.00); Estimated GFR 14 mL/min (>60); GLUCOSE 203 mg/dl (70-220); POTASSIUM 3.9 mmol/L (3.5-5.1); SODIUM 141 mmol/L (135-144)
[2018-09-30] MEDS: INSULIN ASPART [NOVOLOG] 3 ML PEN SC ×7 (10:20→21:00)
[2018-09-30] MEDS: INSULIN GLARGINE [LANTus] (100 UNITS/ML) SYG SC ×3 (10:21→23:45)
[2018-09-30] MEDS: LABETALOL HCL 20MG INJ IV (11:04)
[2018-09-30] MEDS: HYDROmorphONE 4 MG TAB PO (11:33)
[2018-09-30] MEDS: METHYLNALTREXONE 12 MG/0.6 ML VIAL SC (15:10)
[2018-09-30] MEDS: TRIMETHOBENZAMIDE 100 MG/ML VIAL IM (18:40)
[2018-09-30] MEDS: DEXTROSE 50% 50 ML SYRINGE IV (19:44)
[2018-09-30] MEDS: EPOETIN ALFA-EPBX (ESRD) 10,000 UNIT/ML VIAL SC (21:31)
[2018-10-01] MEDS: ACCU-CHEK XX (02:00)
[2018-10-01] MEDS: hydrALAzine 20 MG INJ IV ×4 (02:18→19:46)
[2018-10-01] MEDS: HYDROmorphONE 1 MG/ML SYG IV ×6 (03:12→18:32)
[2018-10-01] MEDS: DIPHENHYDRAMINE 50 MG INJ IV ×6 (04:28→18:38)
[2018-10-01] MEDS: ONDANSETRON INJ 8 MG in SOD CHLORIDE 0.9% 50 ML IV ×2 (04:59→14:04)
[2018-10-01] MEDS: SPIRONOLACTONE 50 MG TAB PO ×2 (06:23→17:46)
[2018-10-01] MEDS: HYOSCYAMINE 0.125 MG SUBL TAB PO ×2 (06:23→13:03)
[2018-10-01] MEDS: PANTOPRAZOLE 40 MG INJ IV ×2 (06:23→17:46)
[2018-10-01] MEDS: INSULIN ASPART [NOVOLOG] 3 ML PEN SC ×7 (08:24→21:00)
[2018-10-01] MEDS: INSULIN GLARGINE [LANTus] (100 UNITS/ML) SYG SC ×2 (08:26→20:56)
[2018-10-01] MEDS: LABETALOL 200 MG TAB PO ×2 (08:26→20:54)
[2018-10-01] MEDS: LOSARTAN 50 MG TAB PO (08:26)
[2018-10-01] MEDS: SUCRALFATE 1 GM TAB PO ×4 (08:26→20:54)
[2018-10-01] MEDS: TRIMETHOBENZAMIDE 100 MG/ML VIAL IM ×2 (09:45→18:36)
[2018-10-01 12:01] LABS: ANA SCREEN NEGATIVE (NEGATIVE)
[2018-10-01] MEDS: HEPARIN 1000 UNITS/ML 10 ML INJ CATHETER (12:16)
[2018-10-01] MEDS: ARTIFICIAL TEARS 15 ML OPH BOTH EYES ×2 (12:42→19:32)
[2018-10-01] MEDS ORDERED: NEOMYC/POLYMYX/HC 10 ML OTIC SUSP (16:19)
[2018-10-01 18:21] LABS: ANTI-DNA (DOUBLE STRANDED) <95 U/mL (< 301)
== END 2018-10-01 21:10 | disposition home or self-care (01) | DRG 637 ==
LOC: MS1 09-23 03:45 → 2NE 10-01 01:55 → E/R 20:18 → ICU 23:42 → TEL 09-24 22:29
PROVIDERS: Family Medicine
PROC: 5A1D70Z Performance of Urinary Filtration, Intermittent, Less than 6 Hours Per Day (ICD-10-PCS; principal; 2018-09-23)
PROC: 30233N1 Transfusion of Nonautologous Red Blood Cells into Peripheral Vein, Percutaneous Approach (ICD-10-PCS; 2018-09-26)
DX: E10.10 Type 1 diabetes mellitus with ketoacidosis without coma (principal); N18.6 End stage renal disease; I12.0 Hypertensive chronic kidney disease with stage 5 chronic kidney disease or end stage renal disease; L03.115 Cellulitis of right lower limb; F11.23 Opioid dependence with withdrawal; N25.81 Secondary hyperparathyroidism of renal origin; E10.22 Type 1 diabetes mellitus with diabetic chronic kidney disease; E10.65 Type 1 diabetes mellitus with hyperglycemia; Z99.2 Dependence on renal dialysis; I16.0 Hypertensive urgency; E87.5 Hyperkalemia; D63.1 Anemia in chronic kidney disease; H54.8 Legal blindness, as defined in USA; S82.251D Displaced comminuted fracture of shaft of right tibia, subsequent encounter for closed fracture with routine healing; S82.451D Displaced comminuted fracture of shaft of right fibula, subsequent encounter for closed fracture with routine healing; W19.XXXD Unspecified fall, subsequent encounter; E83.9 Disorder of mineral metabolism, unspecified; E10.319 Type 1 diabetes mellitus with unspecified diabetic retinopathy without macular edema; E10.21 Type 1 diabetes mellitus with diabetic nephropathy; M43.9 Deforming dorsopathy, unspecified; M54.89 Other dorsalgia; E55.9 Vitamin D deficiency, unspecified; I27.20 Pulmonary hypertension, unspecified; K27.9 Peptic ulcer, site unspecified, unspecified as acute or chronic, without hemorrhage or perforation; K52.29 Other allergic and dietetic gastroenteritis and colitis
CPT/HCPCS: 36415; 36430; 36600; 71045; 72128; 72131; 73590; 73700; 74018; 74250; 80048; 80202; 82270; 82306; 82728; 82803; 82962; 83036; 83540; 83605; 83735; 83970; 84100; 84484; 84703; 85014; 85018; 85025; 85610; 85651; 85730; 86038; 86140; 86160; 86226; 86235; 86703; 86706; 86850; 86900; 86901; 86920; 87040-91; 87081; 87338; 87340; 90935; 92526; 92610; 93005; 93306; 93971; 94640; 94664; 96374; 96375; 96376; 97116; 97162; 97530; 99285-25

== ENCOUNTER 2018-10-04 14:46 | Inpatient (IN) | payer OTHER ==
[2018-10-04 17:24] LABS: ADD MAN DIFF? NO
[2018-10-04 17:29] LABS: ABNORMAL IP MESSAGE 1; BASOPHIL # 0.1 10^3/ul (0.0-0.1); BASOPHILS % 0.7 % (0.0-2.0); EOSINOPHILS # 0.2 10^3/ul (0.0-0.5); EOSINOPHILS % 2.9 % (0.0-7.0); HEMATOCRIT 26.3 % (37.0-47.0); HEMOGLOBIN 8.3 g/dl (12.0-16.0); LYMPHOCYTES # 0.4 10^3/ul (0.8-2.9); MEAN CORPUSCULAR HEMOGLOBIN 30.2 pg (29.0-33.0); MEAN CORPUSCULAR HGB CONC 31.6 g/dl (32.0-37.0); MEAN CORPUSCULAR VOLUME 95.6 fl (82.0-101.0); MONOCYTE # 0.8 10^3/ul (0.3-0.9); MONOCYTES % 11.2 % (0.0-11.0); NEUTROPHIL # 5.6 10^3/ul (1.6-7.5); NEUTROPHILS % 79.9 % (39.0-77.0); PLATELET COUNT 179 10^3/UL (140-415); RED BLOOD COUNT 2.75 10^6/ul (4.20-5.40); RED CELL DISTRIBUTION WIDTH 17.4 % (11.5-14.5)
[2018-10-04 17:31] LABS: POSITIVE DIFF @See below
[2018-10-04 17:39] LABS: AADO2 Venous 60.2 mmHg; MODE ROOM AIR; MetHgb Venous 0.4 %; Sample Type Blood venous; Site OTHER; Venous COHb 0.5 %; Venous Fraction OxyHgb 80.8 %; Venous Oxygen Sat 81.5 mmHG (55.0-75.0); Venous Total Hemglobin 9.7 g/dl
[2018-10-04] MEDS: ONDANSETRON 4 MG INJ IV ×2 (17:44→20:21)
[2018-10-04] MEDS: hydrALAzine 20 MG INJ IV (17:45)
[2018-10-04 17:46] LABS: ANION GAP 22 (5-13); BLOOD UREA NITROGEN 41 mg/dl (7-20); CALCIUM 10.1 mg/dl (8.4-10.2); CARBON DIOXIDE 12 mmol/L (21-31); CHLORIDE 103 mmol/L (97-110); CREATININE 9.03 mg/dl (0.44-1.00); Estimated GFR 5 mL/min (>60); POTASSIUM 4.9 mmol/L (3.5-5.1); SODIUM 137 mmol/L (135-144)
[2018-10-04] MEDS: HYDROmorphONE 1 MG/ML SYG IV ×2 (17:46→20:21)
[2018-10-04 17:48] LABS: GLUCOSE 438 mg/dl (70-220)
[2018-10-04] MEDS ORDERED: D10/0.45% NACL + KCL 40 MEQ 1,000 ML IV (17:55)
[2018-10-04] MEDS ORDERED: NS + KCL 40 MEQ 1,000 ML IV (17:55)
[2018-10-04] MEDS ORDERED: DEXTROSE 10%/0.45% NACL 1,000 ML IV (17:55)
[2018-10-04] MEDS ORDERED: DEXTROSE 50% 50 ML SYRINGE IV ×2 (18:00)
[2018-10-04] MEDS: FAMOTIDINE 20 MG INJ IV (18:29)
[2018-10-04] MEDS: LIDOCAINE/MYLANTA 40 ML BTL PO (18:29)
[2018-10-04] MEDS: LACTATED RINGER'S 700 ML IV (18:29)
[2018-10-04] MEDS: SOD CHLORIDE 0.9% 1,000 ML IV (18:29)
[2018-10-04 18:40] LABS: HEMOGLOBIN A1C 7.4 % (0-5.9)
[2018-10-04] MEDS ORDERED: NACL 0.9% 3 ML SYG IV (19:30)
[2018-10-04] MEDS: NS + KCL 30 MEQ 1,000 ML IV (19:30)
[2018-10-04] MEDS ORDERED: HYDROCODONE/APAP (5/325) TAB PO (19:30)
[2018-10-04] MEDS: INSULIN REGULAR, HUMAN 100 UNIT in SOD CHLORIDE 0.9% 100 ML IV (19:34)
[2018-10-04 19:46] LABS: MODE ROOM AIR; MetHgb Venous 0.4 %; Sample Type Blood venous; Site VENOUS LINE; Venous COHb 0.3 %; Venous Fraction OxyHgb 80.9 %; Venous Oxygen Sat 81.5 mmHG (55.0-75.0); Venous Total Hemglobin 9.5 g/dl
[2018-10-04 20:05] LABS: ANION GAP 25 (5-13); BLOOD UREA NITROGEN 39 mg/dl (7-20); CALCIUM 9.8 mg/dl (8.4-10.2); CARBON DIOXIDE 11 mmol/L (21-31); CHLORIDE 103 mmol/L (97-110); CREATININE 8.77 mg/dl (0.44-1.00); Estimated GFR 5 mL/min (>60); MAGNESIUM 2.4 mg/dl (1.7-2.5); SODIUM 139 mmol/L (135-144)
[2018-10-04 20:17] LABS: GLUCOSE 437 mg/dl (70-220)
[2018-10-04] MEDS: DIPHENHYDRAMINE 25 MG CAP PO (20:21)
[2018-10-04] MEDS ORDERED: DIPHENHYDRAMINE 50 MG INJ (21:10)
[2018-10-04] MEDS: HEPARIN 5,000 UNIT/1 ML VIAL SC (21:18)
[2018-10-04] MEDS ORDERED: DIPHENHYDRAMINE 50 MG INJ IV (21:30)
[2018-10-04 21:36] LABS: MODE ROOM AIR; MetHgb Venous 0.5 %; Sample Type Blood venous; Site VENOUS LINE; Venous COHb 0.3 %; Venous Fraction OxyHgb 79.6 %; Venous Oxygen Sat 80.2 mmHG (55.0-75.0); Venous Total Hemglobin 9.2 g/dl
[2018-10-04 22:07] LABS: ANION GAP 20 (5-13); BLOOD UREA NITROGEN 41 mg/dl (7-20); CALCIUM 9.7 mg/dl (8.4-10.2); CARBON DIOXIDE 14 mmol/L (21-31); CHLORIDE 106 mmol/L (97-110); CREATININE 8.68 mg/dl (0.44-1.00); Estimated GFR 5 mL/min (>60); GLUCOSE 353 mg/dl (70-220); MAGNESIUM 2.4 mg/dl (1.7-2.5); PHOSPHORUS 3.5 mg/dl (2.5-4.9); POTASSIUM 4.5 mmol/L (3.5-5.1); SODIUM 140 mmol/L (135-144)
[2018-10-04] MEDS: D10/0.45% NACL + KCL 30 MEQ 1,000 ML IV (22:35)
[2018-10-05] MEDS: ONDANSETRON 4 MG INJ IV ×4 (00:50→13:07)
[2018-10-05] MEDS: HYDROmorphONE 2 MG/ML SYG IV ×4 (00:51→20:06)
[2018-10-05] MEDS: DIPHENHYDRAMINE 50 MG INJ IV ×5 (00:51→11:13)
[2018-10-05] MEDS: NS + KCL 30 MEQ 1,000 ML IV (01:09)
[2018-10-05 02:57] LABS: MODE ROOM AIR; MetHgb Venous 0.4 %; Sample Type Blood venous; Site VENOUS LINE; Venous COHb 0.4 %; Venous Fraction OxyHgb 73.5 %; Venous Oxygen Sat 74.1 mmHG (55.0-75.0); Venous Total Hemglobin 9.1 g/dl
[2018-10-05 03:20] LABS: ANION GAP 12 (5-13); BLOOD UREA NITROGEN 44 mg/dl (7-20); CALCIUM 9.5 mg/dl (8.4-10.2); CARBON DIOXIDE 19 mmol/L (21-31); CHLORIDE 110 mmol/L (97-110); CREATININE 8.41 mg/dl (0.44-1.00); Estimated GFR 6 mL/min (>60); GLUCOSE 218 mg/dl (70-220); MAGNESIUM 2.4 mg/dl (1.7-2.5); PHOSPHORUS 3.1 mg/dl (2.5-4.9); POTASSIUM 5.2 mmol/L (3.5-5.1); SODIUM 141 mmol/L (135-144)
[2018-10-05] MEDS: hydrALAzine 20 MG INJ IV ×3 (05:04→20:01)
[2018-10-05] MEDS: D10/0.45% NACL + KCL 30 MEQ 1,000 ML IV (05:04)
[2018-10-05] MEDS: INSULIN GLARGINE [LANTus] (100 UNITS/ML) SYG SC (05:39)
[2018-10-05 05:56] LABS: MODE ROOM AIR; MetHgb Venous 0.6 %; Sample Type Blood venous; Site VENOUS LINE; Venous COHb 0.6 %; Venous Fraction OxyHgb 74.5 %; Venous Oxygen Sat 75.4 mmHG (55.0-75.0); Venous Total Hemglobin 8.8 g/dl
[2018-10-05 06:58] LABS: ANION GAP 11 (5-13); BLOOD UREA NITROGEN 42 mg/dl (7-20); CALCIUM 8.8 mg/dl (8.4-10.2); CARBON DIOXIDE 20 mmol/L (21-31); CHLORIDE 111 mmol/L (97-110); CREATININE 7.81 mg/dl (0.44-1.00); Estimated GFR 6 mL/min (>60); GLUCOSE 125 mg/dl (70-220); MAGNESIUM 2.2 mg/dl (1.7-2.5); PHOSPHORUS 2.9 mg/dl (2.5-4.9); POTASSIUM 4.6 mmol/L (3.5-5.1); SODIUM 142 mmol/L (135-144)
[2018-10-05] MEDS ORDERED: HYDROmorphONE 2 MG/ML SYG IV (08:30)
[2018-10-05] MEDS: HYDROmorphONE 0.5 MG/0.5 ML SYG IV (08:49)
[2018-10-05] MEDS: LABETALOL 200 MG TAB PO ×2 (09:30→21:41)
[2018-10-05] MEDS: HEPARIN 5,000 UNIT/1 ML VIAL SC ×2 (09:55→21:55)
[2018-10-05] MEDS: LOSARTAN 50 MG TAB PO ×2 (10:00→15:40)
[2018-10-05] MEDS ORDERED: GLUCAGON 1 MG INJ IM (10:00)
[2018-10-05] MEDS ORDERED: GLUCOSE GEL 15 GRAM TUBE PO (10:00)
[2018-10-05] MEDS: DEXTROSE 50% 50 ML SYRINGE IV (10:04)
[2018-10-05] MEDS: CLONIDINE 0.3 MG/24 HR PATCH TRANSDERM ×2 (11:06→22:54)
[2018-10-05 11:12] LABS: ANION GAP 11 (5-13); BLOOD UREA NITROGEN 34 mg/dl (7-20); CALCIUM 9.2 mg/dl (8.4-10.2); CARBON DIOXIDE 23 mmol/L (21-31); CHLORIDE 105 mmol/L (97-110); CREATININE 6.57 mg/dl (0.44-1.00); Estimated GFR 7 mL/min (>60); MAGNESIUM 2.2 mg/dl (1.7-2.5); PHOSPHORUS 2.7 mg/dl (2.5-4.9); POTASSIUM 4.9 mmol/L (3.5-5.1); SODIUM 139 mmol/L (135-144)
[2018-10-05] MEDS: INSULIN ASPART [NOVOLOG] 3 ML PEN SC ×3 (11:30→22:03)
[2018-10-05 11:45] LABS: GLUCOSE 738 mg/dl (70-220)
[2018-10-05] MEDS: LABETALOL HCL 20MG INJ IV (12:22)
[2018-10-05] MEDS: SUCRALFATE 1 GM TAB PO ×3 (13:08→21:45)
[2018-10-05] MEDS: HYOSCYAMINE 0.125 MG SUBL TAB PO (14:13)
[2018-10-05 14:29] LABS: ANION GAP 10 (5-13); BLOOD UREA NITROGEN 16 mg/dl (7-20); CARBON DIOXIDE 18 mmol/L (21-31); CHLORIDE 113 mmol/L (97-110); CREATININE 3.19 mg/dl (0.44-1.00); Estimated GFR 17 mL/min (>60); GLUCOSE 102 mg/dl (70-220); MAGNESIUM 1.7 mg/dl (1.7-2.5); PHOSPHORUS 2.2 mg/dl (2.5-4.9); POTASSIUM 4.1 mmol/L (3.5-5.1); SODIUM 141 mmol/L (135-144)
[2018-10-05] MEDS: LORAZEPAM 2 MG INJ IV (15:39)
[2018-10-05] MEDS: CALCIUM CARBONATE 500 MG CHEW TAB PO (15:39)
[2018-10-05] MEDS: PANTOPRAZOLE (EC) 40 MG TAB PO (18:06)
[2018-10-05 18:37] LABS: ANION GAP 14 (5-13); BLOOD UREA NITROGEN 19 mg/dl (7-20); CALCIUM 9.4 mg/dl (8.4-10.2); CARBON DIOXIDE 21 mmol/L (21-31); CHLORIDE 103 mmol/L (97-110); CREATININE 4.44 mg/dl (0.44-1.00); Estimated GFR 12 mL/min (>60); GLUCOSE 253 mg/dl (70-220); MAGNESIUM 2.1 mg/dl (1.7-2.5); PHOSPHORUS 3.2 mg/dl (2.5-4.9); POTASSIUM 5.2 mmol/L (3.5-5.1); SODIUM 138 mmol/L (135-144)
[2018-10-05] MEDS: ARTIFICIAL TEARS 15 ML OPH BOTH EYES (19:05)
[2018-10-05] MEDS: SPIRONOLACTONE 50 MG TAB PO (21:43)
[2018-10-05 23:41] LABS: ANION GAP 13 (5-13); BLOOD UREA NITROGEN 22 mg/dl (7-20); CALCIUM 9.2 mg/dl (8.4-10.2); CARBON DIOXIDE 22 mmol/L (21-31); CHLORIDE 103 mmol/L (97-110); CREATININE 4.83 mg/dl (0.44-1.00); Estimated GFR 11 mL/min (>60); GLUCOSE 274 mg/dl (70-220); MAGNESIUM 2.1 mg/dl (1.7-2.5); PHOSPHORUS 3.2 mg/dl (2.5-4.9); POTASSIUM 4.8 mmol/L (3.5-5.1); SODIUM 138 mmol/L (135-144)
[2018-10-06] MEDS: DIPHENHYDRAMINE 50 MG INJ IV ×5 (00:14→17:53)
[2018-10-06] MEDS: ONDANSETRON 4 MG INJ IV ×6 (00:15→20:20)
[2018-10-06] MEDS: HYDROmorphONE 2 MG/ML SYG IV ×5 (00:15→20:20)
[2018-10-06] MEDS: ARTIFICIAL TEARS 15 ML OPH BOTH EYES (04:19)
[2018-10-06] MEDS: PANTOPRAZOLE (EC) 40 MG TAB PO (05:15)
[2018-10-06] MEDS: INSULIN ASPART [NOVOLOG] 3 ML PEN SC ×7 (08:21→20:24)
[2018-10-06] MEDS: HEPARIN 5,000 UNIT/1 ML VIAL SC ×2 (08:22→20:22)
[2018-10-06] MEDS: SPIRONOLACTONE 50 MG TAB PO ×2 (08:22→20:23)
[2018-10-06] MEDS: SUCRALFATE 1 GM TAB PO ×4 (08:23→20:25)
[2018-10-06] MEDS: LABETALOL 200 MG TAB PO ×2 (08:25→20:22)
[2018-10-06 09:15] LABS: ADD MAN DIFF? NO
[2018-10-06 09:20] LABS: WHITE BLOOD COUNT 5.7 10^3/ul (4.8-10.8)
[2018-10-06 09:20] LABS: ABNORMAL IP MESSAGE 1; BASOPHIL # 0.1 10^3/ul (0.0-0.1); BASOPHILS % 1.1 % (0.0-2.0); EOSINOPHILS # 0.3 10^3/ul (0.0-0.5); EOSINOPHILS % 4.6 % (0.0-7.0); HEMOGLOBIN 9.3 g/dl (12.0-16.0); LYMPHOCYTES # 0.4 10^3/ul (0.8-2.9); LYMPHOCYTES % 7.5 % (15.0-51.0); MEAN CORPUSCULAR HEMOGLOBIN 30.5 pg (29.0-33.0); MEAN CORPUSCULAR HGB CONC 32.1 g/dl (32.0-37.0); MEAN CORPUSCULAR VOLUME 95.1 fl (82.0-101.0); MONOCYTE # 0.6 10^3/ul (0.3-0.9); MONOCYTES % 10.9 % (0.0-11.0); NEUTROPHIL # 4.3 10^3/ul (1.6-7.5); NEUTROPHILS % 75.4 % (39.0-77.0); PLATELET COUNT 160 10^3/UL (140-415); RED BLOOD COUNT 3.05 10^6/ul (4.20-5.40); RED CELL DISTRIBUTION WIDTH 17.6 % (11.5-14.5)
[2018-10-06 09:25] LABS: POSITIVE DIFF @See below
[2018-10-06 09:47] LABS: ALBUMIN 4.2 g/dl (3.3-4.9); ALKALINE PHOSPHATASE 170 IU/L (42-121); ANION GAP 16 (5-13); ASPARTATE AMINO TRANSFERASE 24 IU/L (15-46); BLOOD UREA NITROGEN 24 mg/dl (7-20); CALCIUM 9.7 mg/dl (8.4-10.2); CARBON DIOXIDE 21 mmol/L (21-31); CHLORIDE 104 mmol/L (97-110); CREATININE 5.43 mg/dl (0.44-1.00); Estimated GFR 9 mL/min (>60); GLUCOSE 262 mg/dl (70-220); MAGNESIUM 2.2 mg/dl (1.7-2.5); PHOSPHORUS 4.1 mg/dl (2.5-4.9); POTASSIUM 5.3 mmol/L (3.5-5.1); SODIUM 141 mmol/L (135-144); TOTAL PROTEIN 7.7 g/dl (6.1-8.1)
[2018-10-06 09:48] LABS: ALANINE AMINOTRANSFERASE < 6 IU/L (13-69)
[2018-10-06 10:16] LABS: ANISOCYTOSIS 2+ (0-0); BASOPHILS % (M) 1 % (0-2); BURR CELLS 1+ (0-0); EOSINOPHILS % (M) 5 % (0-7); GIANT THROMBO% (M) 1 % (0-0); LYMPHOCYTES #M 0.3 10^3/ul (0.8-2.9); LYMPHOCYTES % (M) 6 % (15-51); MONOCYTE #M 0.6 10^3/ul (0.3-0.9); MONOCYTES % (M) 11 % (0-11); OVALOCYTES 1+ (0-0); PLATELET ESTIMATE NORMAL; POIKILOCYTOSIS 1+ (0-0); POLYCHROMASIA 2+ (0-0); SEGMENTED NEUTROPHILS (M) % 77 % (39-77); SMUDGE%M 45 % (0-0)
[2018-10-06] MEDS: INSULIN GLARGINE [LANTus] (100 UNITS/ML) SYG SC (10:30)
[2018-10-06] MEDS: LORAZEPAM 2 MG INJ IV ×2 (11:19→20:21)
[2018-10-06] MEDS: DEXTROSE 50% 50 ML SYRINGE IV ×2 (17:05→20:16)
[2018-10-06 17:40] LABS: GLUCOSE 86 mg/dl (70-220)
[2018-10-06] MEDS: PANTOPRAZOLE 40 MG INJ IV (17:52)
[2018-10-07] MEDS: DIPHENHYDRAMINE 50 MG INJ IV ×3 (01:04→09:23)
[2018-10-07] MEDS: HYDROmorphONE 2 MG/ML SYG IV ×3 (01:04→09:23)
[2018-10-07] MEDS: ONDANSETRON 4 MG INJ IV ×5 (01:04→22:25)
[2018-10-07] MEDS: LORAZEPAM 2 MG INJ IV ×3 (03:24→22:25)
[2018-10-07 05:10] LABS: ADD MAN DIFF? NO
[2018-10-07 05:16] LABS: ABNORMAL IP MESSAGE 1; BASOPHIL # 0.1 10^3/ul (0.0-0.1); BASOPHILS % 1.3 % (0.0-2.0); EOSINOPHILS # 0.3 10^3/ul (0.0-0.5); EOSINOPHILS % 6.7 % (0.0-7.0); HEMATOCRIT 25.6 % (37.0-47.0); HEMOGLOBIN 8.1 g/dl (12.0-16.0); LYMPHOCYTES # 0.5 10^3/ul (0.8-2.9); LYMPHOCYTES % 11.7 % (15.0-51.0); MEAN CORPUSCULAR HEMOGLOBIN 30.2 pg (29.0-33.0); MEAN CORPUSCULAR HGB CONC 31.6 g/dl (32.0-37.0); MEAN CORPUSCULAR VOLUME 95.5 fl (82.0-101.0); MEAN PLATELET VOLUME 10.2 fl (7.4-10.4); MONOCYTE # 0.8 10^3/ul (0.3-0.9); MONOCYTES % 18.4 % (0.0-11.0); NEUTROPHIL # 2.7 10^3/ul (1.6-7.5); NEUTROPHILS % 61.5 % (39.0-77.0); PLATELET COUNT 186 10^3/UL (140-415); RED BLOOD COUNT 2.68 10^6/ul (4.20-5.40); RED CELL DISTRIBUTION WIDTH 17.2 % (11.5-14.5)
[2018-10-07 05:16] LABS: WHITE BLOOD COUNT 4.5 10^3/ul (4.8-10.8)
[2018-10-07] MEDS: PANTOPRAZOLE 40 MG INJ IV ×2 (05:20→21:04)
[2018-10-07 05:23] LABS: POSITIVE DIFF @See below
[2018-10-07 06:43] LABS: ANION GAP 10 (5-13); BLOOD UREA NITROGEN 25 mg/dl (7-20); CALCIUM 9.3 mg/dl (8.4-10.2); CARBON DIOXIDE 25 mmol/L (21-31); CHLORIDE 105 mmol/L (97-110); CREATININE 6.77 mg/dl (0.44-1.00); Estimated GFR 7 mL/min (>60); GLUCOSE 68 mg/dl (70-220); MAGNESIUM 2.3 mg/dl (1.7-2.5); PHOSPHORUS 4.2 mg/dl (2.5-4.9); POTASSIUM 4.8 mmol/L (3.5-5.1); SODIUM 140 mmol/L (135-144)
[2018-10-07] MEDS: SUCRALFATE 1 GM TAB PO ×4 (07:55→21:06)
[2018-10-07] MEDS: SPIRONOLACTONE 50 MG TAB PO ×2 (07:55→21:04)
[2018-10-07] MEDS: CALCIUM CARBONATE 500 MG CHEW TAB PO (07:56)
[2018-10-07] MEDS: LOSARTAN 50 MG TAB PO (07:56)
[2018-10-07] MEDS: INSULIN ASPART [NOVOLOG] 3 ML PEN SC ×5 (08:00→21:00)
[2018-10-07] MEDS: LABETALOL 200 MG TAB PO ×2 (08:01→21:05)
[2018-10-07] MEDS: HEPARIN 5,000 UNIT/1 ML VIAL SC ×2 (08:04→21:29)
[2018-10-07] MEDS: GLUCOSE GEL 15 GRAM TUBE BUCCAL ×2 (08:13→17:39)
[2018-10-07] MEDS: INSULIN GLARGINE [LANTus] (100 UNITS/ML) SYG SC (09:15)
[2018-10-07 09:42] LABS: GLUCOSE 95 mg/dl (70-220)
[2018-10-07] MEDS ORDERED: DIPHENHYDRAMINE 25 MG CAP PO (11:30)
[2018-10-07] MEDS: TRIMETHOBENZAMIDE 100 MG/ML VIAL IM (12:09)
[2018-10-07] MEDS: HYOSCYAMINE 0.125 MG SUBL TAB PO (12:10)
[2018-10-07] MEDS: HYDROmorphONE 1 MG/ML SYG IV ×2 (13:13→21:06)
[2018-10-07] MEDS: ERGOCALCIFEROL (8000 UNITS/ML PO SYG) PO (14:56)
[2018-10-07] MEDS: HYDROmorphONE 2 MG TAB PO (17:10)
[2018-10-07] MEDS: ERYTHROMYCIN BASE (DR) 250 MG CAP PO ×2 (17:11→21:05)
[2018-10-07] MEDS: EPOETIN ALFA-EPBX (ESRD) 10,000 UNIT/ML VIAL SC (17:12)
[2018-10-07] MEDS: DEXTROSE 50% 50 ML SYRINGE IV (18:07)
[2018-10-07] MEDS ORDERED: LORAZEPAM 2 MG INJ IV (18:30)
[2018-10-07] MEDS ORDERED: HYDROCODONE/APAP (5/325) TAB PO (18:30)
[2018-10-07] MEDS: DOXAZOSIN 1 MG TAB PO (21:05)
[2018-10-08] MEDS: HYDROmorphONE 2 MG TAB PO (02:24)
[2018-10-08] MEDS: PANTOPRAZOLE 40 MG INJ IV ×2 (05:10→17:24)
[2018-10-08] MEDS: HYDROmorphONE 1 MG/ML SYG IV ×3 (05:10→22:28)
[2018-10-08 06:16] LABS: ADD MAN DIFF? NO
[2018-10-08 06:19] LABS: ABNORMAL IP MESSAGE 1; BASOPHIL # 0.1 10^3/ul (0.0-0.1); BASOPHILS % 1.2 % (0.0-2.0); EOSINOPHILS # 0.3 10^3/ul (0.0-0.5); EOSINOPHILS % 6.4 % (0.0-7.0); HEMATOCRIT 28.4 % (37.0-47.0); HEMOGLOBIN 8.9 g/dl (12.0-16.0); LYMPHOCYTES # 0.4 10^3/ul (0.8-2.9); LYMPHOCYTES % 8.9 % (15.0-51.0); MEAN CORPUSCULAR HEMOGLOBIN 29.9 pg (29.0-33.0); MEAN CORPUSCULAR HGB CONC 31.3 g/dl (32.0-37.0); MEAN CORPUSCULAR VOLUME 95.3 fl (82.0-101.0); MEAN PLATELET VOLUME 10.5 fl (7.4-10.4); MONOCYTE # 0.6 10^3/ul (0.3-0.9); MONOCYTES % 12.5 % (0.0-11.0); NEUTROPHIL # 3.5 10^3/ul (1.6-7.5); NEUTROPHILS % 70.6 % (39.0-77.0); PLATELET COUNT 200 10^3/UL (140-415); RED BLOOD COUNT 2.98 10^6/ul (4.20-5.40); RED CELL DISTRIBUTION WIDTH 17.2 % (11.5-14.5)
[2018-10-08] MEDS: LORAZEPAM 2 MG INJ IV ×2 (06:21→20:49)
[2018-10-08 06:49] LABS: ANION GAP 13 (5-13); BLOOD UREA NITROGEN 32 mg/dl (7-20); CALCIUM 9.2 mg/dl (8.4-10.2); CARBON DIOXIDE 22 mmol/L (21-31); CHLORIDE 102 mmol/L (97-110); CREATININE 7.59 mg/dl (0.44-1.00); Estimated GFR 6 mL/min (>60); GLUCOSE 249 mg/dl (70-220); POTASSIUM 5.1 mmol/L (3.5-5.1); SODIUM 137 mmol/L (135-144)
[2018-10-08 07:01] LABS: POSITIVE DIFF @See below
[2018-10-08 07:09] LABS: PHOSPHORUS 4.5 mg/dl (2.5-4.9)
[2018-10-08 07:09] LABS: MAGNESIUM 2.2 mg/dl (1.7-2.5)
[2018-10-08] MEDS: INSULIN GLARGINE [LANTus] (100 UNITS/ML) SYG SC (08:00)
[2018-10-08] MEDS: INSULIN ASPART [NOVOLOG] 3 ML PEN SC ×4 (08:08→20:47)
[2018-10-08] MEDS: SUCRALFATE 1 GM TAB PO ×4 (08:54→20:49)
[2018-10-08] MEDS: SPIRONOLACTONE 50 MG TAB PO ×2 (08:54→20:48)
[2018-10-08] MEDS: LABETALOL 200 MG TAB PO ×4 (08:55→23:37)
[2018-10-08] MEDS: LOSARTAN 50 MG TAB PO ×2 (08:55→12:30)
[2018-10-08] MEDS: HEPARIN 5,000 UNIT/1 ML VIAL SC ×2 (08:55→21:07)
[2018-10-08] MEDS: ERYTHROMYCIN BASE (DR) 250 MG CAP PO ×3 (08:55→20:48)
[2018-10-08] MEDS: HEPARIN 1000 UNITS/ML 10 ML INJ CATHETER (12:08)
[2018-10-08] MEDS: DOXAZOSIN 1 MG TAB PO (20:48)
[2018-10-08] MEDS: LABETALOL HCL 20MG INJ IV (23:37)
[2018-10-08] MEDS: hydrALAzine 20 MG INJ IV (23:51)
[2018-10-09] MEDS: hydrALAzine 20 MG INJ IV ×2 (01:20→13:59)
[2018-10-09] MEDS: ONDANSETRON 4 MG INJ IV ×2 (02:30→22:36)
[2018-10-09] MEDS: LABETALOL HCL 20MG INJ IV (03:09)
[2018-10-09] MEDS: LORAZEPAM 2 MG INJ IV ×2 (04:27→22:36)
[2018-10-09] MEDS: PANTOPRAZOLE 40 MG INJ IV ×2 (06:29→17:41)
[2018-10-09] MEDS: HYDROmorphONE 1 MG/ML SYG IV ×3 (06:30→20:52)
[2018-10-09] MEDS: INSULIN ASPART [NOVOLOG] 3 ML PEN SC ×4 (07:49→20:47)
[2018-10-09] MEDS: INSULIN GLARGINE [LANTus] (100 UNITS/ML) SYG SC ×2 (07:49→20:47)
[2018-10-09] MEDS: ERYTHROMYCIN BASE (DR) 250 MG CAP PO ×3 (08:33→20:34)
[2018-10-09] MEDS: SUCRALFATE 1 GM TAB PO ×4 (08:33→20:33)
[2018-10-09] MEDS: LOSARTAN 50 MG TAB PO (08:33)
[2018-10-09] MEDS: LABETALOL 200 MG TAB PO ×2 (08:36→20:33)
[2018-10-09] MEDS: HEPARIN 5,000 UNIT/1 ML VIAL SC ×2 (08:47→20:46)
[2018-10-09] MEDS: SPIRONOLACTONE 50 MG TAB PO ×2 (08:54→20:33)
[2018-10-09] MEDS ORDERED: HYDROmorphONE 2 MG/ML SYG IV ×2 (10:30→16:30)
[2018-10-09 11:04] LABS: ADD MAN DIFF? NO
[2018-10-09 11:07] LABS: WHITE BLOOD COUNT 6.5 10^3/ul (4.8-10.8)
[2018-10-09 11:07] LABS: ABNORMAL IP MESSAGE 1; BASOPHIL # 0.1 10^3/ul (0.0-0.1); BASOPHILS % 1.1 % (0.0-2.0); EOSINOPHILS # 0.3 10^3/ul (0.0-0.5); HEMATOCRIT 26.2 % (37.0-47.0); HEMOGLOBIN 8.2 g/dl (12.0-16.0); LYMPHOCYTES # 0.4 10^3/ul (0.8-2.9); MEAN CORPUSCULAR HEMOGLOBIN 30.3 pg (29.0-33.0); MEAN CORPUSCULAR HGB CONC 31.3 g/dl (32.0-37.0); MEAN CORPUSCULAR VOLUME 96.7 fl (82.0-101.0); MEAN PLATELET VOLUME 10.3 fl (7.4-10.4); MONOCYTE # 0.8 10^3/ul (0.3-0.9); MONOCYTES % 12.6 % (0.0-11.0); PLATELET COUNT 200 10^3/UL (140-415); RED BLOOD COUNT 2.71 10^6/ul (4.20-5.40)
[2018-10-09 11:08] LABS: POSITIVE DIFF @See below
[2018-10-09 11:26] LABS: ANION GAP 15 (5-13); BLOOD UREA NITROGEN 25 mg/dl (7-20); CALCIUM 8.8 mg/dl (8.4-10.2); CARBON DIOXIDE 20 mmol/L (21-31); CHLORIDE 103 mmol/L (97-110); CREATININE 5.29 mg/dl (0.44-1.00); Estimated GFR 10 mL/min (>60); GLUCOSE 361 mg/dl (70-220); POTASSIUM 4.7 mmol/L (3.5-5.1); SODIUM 138 mmol/L (135-144)
[2018-10-09] MEDS: EPOETIN ALFA-EPBX (ESRD) 10,000 UNIT/ML VIAL SC (17:40)
[2018-10-09] MEDS: DOXAZOSIN 1 MG TAB PO (20:34)
[2018-10-10] MEDS: hydrALAzine 20 MG INJ IV ×2 (02:20→17:21)
[2018-10-10] MEDS: HYDROmorphONE 1 MG/ML SYG IV ×4 (02:31→21:36)
[2018-10-10] MEDS: LABETALOL HCL 20MG INJ IV ×2 (04:33→18:22)
[2018-10-10] MEDS: HYDROmorphONE 2 MG TAB PO ×2 (05:38→18:18)
[2018-10-10 06:28] LABS: ADD MAN DIFF? NO
[2018-10-10] MEDS: LORAZEPAM 2 MG INJ IV ×2 (06:34→22:56)
[2018-10-10] MEDS: PANTOPRAZOLE 40 MG INJ IV ×2 (06:34→17:22)
[2018-10-10 06:37] LABS: WHITE BLOOD COUNT 5.9 10^3/ul (4.8-10.8)
[2018-10-10 06:37] LABS: ABNORMAL IP MESSAGE 1; BASOPHIL # 0.1 10^3/ul (0.0-0.1); BASOPHILS % 1.2 % (0.0-2.0); EOSINOPHILS # 0.5 10^3/ul (0.0-0.5); EOSINOPHILS % 8.5 % (0.0-7.0); HEMATOCRIT 26.9 % (37.0-47.0); HEMOGLOBIN 8.5 g/dl (12.0-16.0); LYMPHOCYTES # 0.5 10^3/ul (0.8-2.9); LYMPHOCYTES % 8.2 % (15.0-51.0); MEAN CORPUSCULAR HEMOGLOBIN 30.1 pg (29.0-33.0); MEAN CORPUSCULAR HGB CONC 31.6 g/dl (32.0-37.0); MEAN CORPUSCULAR VOLUME 95.4 fl (82.0-101.0); MEAN PLATELET VOLUME 10.4 fl (7.4-10.4); MONOCYTE # 0.7 10^3/ul (0.3-0.9); MONOCYTES % 11.9 % (0.0-11.0); NEUTROPHIL # 4.1 10^3/ul (1.6-7.5); PLATELET COUNT 238 10^3/UL (140-415); RED BLOOD COUNT 2.82 10^6/ul (4.20-5.40); RED CELL DISTRIBUTION WIDTH 16.8 % (11.5-14.5)
[2018-10-10 06:42] LABS: POSITIVE DIFF @See below
[2018-10-10 07:00] LABS: ANION GAP 15 (5-13); BLOOD UREA NITROGEN 31 mg/dl (7-20); CALCIUM 9.4 mg/dl (8.4-10.2); CARBON DIOXIDE 22 mmol/L (21-31); CHLORIDE 101 mmol/L (97-110); CREATININE 6.66 mg/dl (0.44-1.00); Estimated GFR 7 mL/min (>60); GLUCOSE 201 mg/dl (70-220); POTASSIUM 4.5 mmol/L (3.5-5.1); SODIUM 138 mmol/L (135-144)
[2018-10-10] MEDS: INSULIN ASPART [NOVOLOG] 3 ML PEN SC ×5 (08:03→21:00)
[2018-10-10] MEDS: SUCRALFATE 1 GM TAB PO ×4 (08:54→22:24)
[2018-10-10] MEDS: ERYTHROMYCIN BASE (DR) 250 MG CAP PO ×3 (08:55→21:47)
[2018-10-10] MEDS: SPIRONOLACTONE 50 MG TAB PO ×2 (08:55→21:49)
[2018-10-10] MEDS: LABETALOL 200 MG TAB PO ×3 (09:00→21:48)
[2018-10-10] MEDS: LOSARTAN 50 MG TAB PO (09:00)
[2018-10-10] MEDS: INSULIN GLARGINE [LANTus] (100 UNITS/ML) SYG SC ×2 (09:13→22:00)
[2018-10-10] MEDS: HEPARIN 5,000 UNIT/1 ML VIAL SC ×2 (09:16→21:00)
[2018-10-10 10:26] LABS: C-PEPTIDE <0.10 ng/mL (0.80-3.85)
[2018-10-10] MEDS: DIPHENHYDRAMINE 50 MG INJ IV ×4 (11:16→21:00)
[2018-10-10] MEDS ORDERED: DIPHENHYDRAMINE 50 MG INJ IV (19:30)
[2018-10-10] MEDS: HEPARIN 1000 UNITS/ML 10 ML INJ CATHETER (19:42)
[2018-10-10] MEDS: DOXAZOSIN 1 MG TAB PO (21:49)
[2018-10-11] MEDS: DIPHENHYDRAMINE 50 MG INJ IV (00:55)
[2018-10-11] MEDS: HYDROmorphONE 1 MG/ML SYG IV ×5 (02:35→19:18)
[2018-10-11 05:36] LABS: ADD MAN DIFF? NO
[2018-10-11 05:37] LABS: ABNORMAL IP MESSAGE 1; BASOPHIL # 0.1 10^3/ul (0.0-0.1); BASOPHILS % 1.7 % (0.0-2.0); EOSINOPHILS # 0.5 10^3/ul (0.0-0.5); EOSINOPHILS % 8.8 % (0.0-7.0); HEMATOCRIT 26.9 % (37.0-47.0); HEMOGLOBIN 8.4 g/dl (12.0-16.0); LYMPHOCYTES # 0.6 10^3/ul (0.8-2.9); LYMPHOCYTES % 9.3 % (15.0-51.0); MEAN CORPUSCULAR HEMOGLOBIN 29.5 pg (29.0-33.0); MEAN CORPUSCULAR HGB CONC 31.2 g/dl (32.0-37.0); MEAN CORPUSCULAR VOLUME 94.4 fl (82.0-101.0); MONOCYTE # 0.7 10^3/ul (0.3-0.9); NEUTROPHIL # 4.1 10^3/ul (1.6-7.5); PLATELET COUNT 224 10^3/UL (140-415); RED BLOOD COUNT 2.85 10^6/ul (4.20-5.40); RED CELL DISTRIBUTION WIDTH 17.2 % (11.5-14.5)
[2018-10-11 05:37] LABS: WHITE BLOOD COUNT 5.9 10^3/ul (4.8-10.8)
[2018-10-11 05:46] LABS: POSITIVE DIFF @See below
[2018-10-11 06:00] LABS: ANION GAP 12 (5-13); BLOOD UREA NITROGEN 16 mg/dl (7-20); CALCIUM 9.1 mg/dl (8.4-10.2); CARBON DIOXIDE 27 mmol/L (21-31); CHLORIDE 100 mmol/L (97-110); CREATININE 4.19 mg/dl (0.44-1.00); Estimated GFR 13 mL/min (>60); GLUCOSE 168 mg/dl (70-220); SODIUM 139 mmol/L (135-144)
[2018-10-11] MEDS: PANTOPRAZOLE 40 MG INJ IV ×2 (06:42→17:07)
[2018-10-11] MEDS: INSULIN ASPART [NOVOLOG] 3 ML PEN SC ×7 (06:42→21:00)
[2018-10-11] MEDS: SEVELAMER CARBONATE 800 MG TABLET PO ×3 (08:36→17:07)
[2018-10-11] MEDS: LOSARTAN 50 MG TAB PO (08:36)
[2018-10-11] MEDS: SPIRONOLACTONE 50 MG TAB PO ×2 (08:37→20:18)
[2018-10-11] MEDS: LABETALOL 200 MG TAB PO ×2 (08:37→20:19)
[2018-10-11] MEDS: SUCRALFATE 1 GM TAB PO ×4 (08:37→21:19)
[2018-10-11] MEDS: ERYTHROMYCIN BASE (DR) 250 MG CAP PO ×3 (08:38→17:01)
[2018-10-11] MEDS: INSULIN GLARGINE [LANTus] (100 UNITS/ML) SYG SC ×2 (08:46→21:00)
[2018-10-11] MEDS: HEPARIN 5,000 UNIT/1 ML VIAL SC ×2 (08:46→20:28)
[2018-10-11] MEDS: LORAZEPAM 2 MG INJ IV (08:55)
[2018-10-11] MEDS: HYDROmorphONE 2 MG TAB PO (10:12)
[2018-10-11] MEDS: GLUCOSE GEL 15 GRAM TUBE PO (11:50)
[2018-10-11] MEDS: BACLOFEN 10 MG TAB PO ×3 (12:22→20:17)
[2018-10-11] MEDS: ONDANSETRON 4 MG INJ IV ×2 (12:44→19:17)
[2018-10-11] MEDS: EPOETIN ALFA-EPBX (ESRD) 10,000 UNIT/ML VIAL SC (17:02)
[2018-10-11] MEDS: LOPERAMIDE 2 MG CAP PO (17:07)
[2018-10-11] MEDS: DOXAZOSIN 1 MG TAB PO (20:17)
[2018-10-11] MEDS ORDERED: KETOROLAC 30 MG INJ IV (21:32)
[2018-10-11] MEDS: hydrALAzine 20 MG INJ IV (22:08)
[2018-10-12] MEDS ORDERED: CLONIDINE 0.3 MG/24 HR PATCH TRANSDERM (10:00)
== END 2018-10-11 22:15 | disposition home or self-care (01) | DRG 637 ==
LOC: E/R 14:46 → 6WM 10-05 20:10 → ICU 18:00
PROVIDERS: Internal Medicine
DX: E10.10 Type 1 diabetes mellitus with ketoacidosis without coma (principal); N18.6 End stage renal disease; S82.201A Unspecified fracture of shaft of right tibia, initial encounter for closed fracture; N25.81 Secondary hyperparathyroidism of renal origin; K31.84 Gastroparesis; E87.5 Hyperkalemia; E10.22 Type 1 diabetes mellitus with diabetic chronic kidney disease; S82.401A Unspecified fracture of shaft of right fibula, initial encounter for closed fracture; D63.1 Anemia in chronic kidney disease; E10.319 Type 1 diabetes mellitus with unspecified diabetic retinopathy without macular edema; E10.40 Type 1 diabetes mellitus with diabetic neuropathy, unspecified; E10.42 Type 1 diabetes mellitus with diabetic polyneuropathy; E55.9 Vitamin D deficiency, unspecified; Z99.2 Dependence on renal dialysis; G89.4 Chronic pain syndrome; H54.7 Unspecified visual loss; F41.9 Anxiety disorder, unspecified; R19.7 Diarrhea, unspecified
CPT/HCPCS: 36415; 71045; 73590; 80048; 80053; 82803; 82947; 82962; 83036; 83605; 83735; 84100; 84681; 84703; 85025; 86674; 87040-91; 87045; 87075; 87081; 87177; 87205; 90935; 92526; 92610; 96374; 96375; 97110; 97161; 99285-25

== ENCOUNTER 2018-10-13 14:00 | Inpatient (IN) | payer OTHER ==
[2018-10-13] MEDS: ACCU-CHEK XX ×2 (06:30→07:30)
[2018-10-13] MEDS: SUCRALFATE 1 GM TAB PO (07:00)
[2018-10-13] MEDS: ERYTHROMYCIN BASE (DR) 250 MG CAP PO (07:00)
[2018-10-13] MEDS: LABETALOL 200 MG TAB PO (07:01)
[2018-10-13] MEDS: BACLOFEN 10 MG TAB PO (07:01)
[2018-10-13 15:45] LABS: ADD MAN DIFF? NO
[2018-10-13 15:49] LABS: WHITE BLOOD COUNT 8.3 10^3/ul (4.8-10.8)
[2018-10-13 15:49] LABS: ABNORMAL IP MESSAGE 1; BASOPHIL # 0.1 10^3/ul (0.0-0.1); BASOPHILS % 0.8 % (0.0-2.0); EOSINOPHILS # 0.1 10^3/ul (0.0-0.5); EOSINOPHILS % 1.4 % (0.0-7.0); HEMATOCRIT 28.7 % (37.0-47.0); HEMOGLOBIN 8.4 g/dl (12.0-16.0); LYMPHOCYTES # 0.3 10^3/ul (0.8-2.9); LYMPHOCYTES % 3.1 % (15.0-51.0); MEAN CORPUSCULAR HEMOGLOBIN 29.9 pg (29.0-33.0); MEAN CORPUSCULAR HGB CONC 29.3 g/dl (32.0-37.0); MEAN CORPUSCULAR VOLUME 102.1 fl (82.0-101.0); MEAN PLATELET VOLUME 10.8 fl (7.4-10.4); MONOCYTE # 0.7 10^3/ul (0.3-0.9); MONOCYTES % 8.2 % (0.0-11.0); NEUTROPHIL # 7.1 10^3/ul (1.6-7.5); PLATELET COUNT 223 10^3/UL (140-415); RED BLOOD COUNT 2.81 10^6/ul (4.20-5.40); RED CELL DISTRIBUTION WIDTH 18.5 % (11.5-14.5)
[2018-10-13] MEDS: hydrALAzine 20 MG INJ IV (15:53)
[2018-10-13] MEDS: SOD CHLORIDE 0.9% 700 ML IV (15:53)
[2018-10-13 15:58] LABS: POSITIVE DIFF @See below
[2018-10-13 15:59] LABS: MODE ROOM AIR; MetHgb Venous 0.2 %; Sample Type Blood venous; Site OTHER; Venous COHb 0.3 %; Venous Fraction OxyHgb 81.1 %; Venous Oxygen Sat 81.5 mmHG (55.0-75.0); Venous Total Hemglobin 9.6 g/dl
[2018-10-13] MEDS: ONDANSETRON 4 MG INJ IV ×2 (16:14→20:21)
[2018-10-13] MEDS ORDERED: D10/0.45% NACL + KCL 30 MEQ 1,000 ML IV (16:15)
[2018-10-13] MEDS ORDERED: NS + KCL 30 MEQ 1,000 ML IV (16:15)
[2018-10-13] MEDS ORDERED: D10/0.45% NACL + KCL 40 MEQ 1,000 ML IV ×2 (16:15→19:23)
[2018-10-13] MEDS ORDERED: DEXTROSE 10%/0.45% NACL 1,000 ML IV ×2 (16:15→19:23)
[2018-10-13] MEDS: HYDROmorphONE 1 MG/ML SYG IV (16:15)
[2018-10-13] MEDS ORDERED: NS + KCL 40 MEQ 1,000 ML IV ×2 (16:15→19:23)
[2018-10-13] MEDS ORDERED: SOD CHLORIDE 0.9% 1,000 ML IV (16:15)
[2018-10-13 16:19] LABS: ANION GAP 29 (5-13); BLOOD UREA NITROGEN 35 mg/dl (7-20); CALCIUM 9.3 mg/dl (8.4-10.2); CHLORIDE 98 mmol/L (97-110); CREATININE 8.69 mg/dl (0.44-1.00); Estimated GFR 5 mL/min (>60); MAGNESIUM 2.4 mg/dl (1.7-2.5); PHOSPHORUS 4.8 mg/dl (2.5-4.9); SODIUM 135 mmol/L (135-144)
[2018-10-13 16:30] LABS: HEMOGLOBIN A1C 7.1 % (0-5.9)
[2018-10-13] MEDS ORDERED: DEXTROSE 50% 50 ML SYRINGE IV ×3 (16:30→19:30)
[2018-10-13 16:31] LABS: TROPONIN-I < 0.012 ng/ml (0.000-0.120)
[2018-10-13 16:38] LABS: POTASSIUM 6.3 mmol/L (3.5-5.1)
[2018-10-13 16:39] LABS: CARBON DIOXIDE 8 mmol/L (21-31); GLUCOSE 779 mg/dl (70-220)
[2018-10-13] MEDS: INSULIN REGULAR, HUMAN 100 UNIT in SOD CHLORIDE 0.9% 100 ML IV ×2 (16:52→19:56)
[2018-10-13] MEDS ORDERED: NITROGLYCERIN (SL) 0.4 MG TAB SL (19:30)
[2018-10-13] MEDS ORDERED: MAGNESIUM HYDROXIDE 30ML CUP PO (19:30)
[2018-10-13] MEDS ORDERED: HYDROCODONE/APAP (5/325) TAB PO (19:30)
[2018-10-13] MEDS ORDERED: DOCUSATE SODIUM 100 MG CAP PO (19:30)
[2018-10-13] MEDS ORDERED: ALBUTEROL/IPRATROPIUM (NEB) 3 ML AMP HHN (19:30)
[2018-10-13] MEDS ORDERED: ARTIFICIAL TEARS 15 ML OPH BOTH EYES (19:30)
[2018-10-13] MEDS ORDERED: NACL 0.9% 3 ML SYG IV (19:30)
[2018-10-13] MEDS ORDERED: ONDANSETRON 4 MG INJ IV (19:30)
[2018-10-13] MEDS ORDERED: CALCIUM CARBONATE 750 MG CHEW TAB PO (19:30)
[2018-10-13] MEDS ORDERED: ACETAMINOPHEN 325 MG TAB PO (19:30)
[2018-10-13] MEDS: SOD CHLORIDE 0.9% 1,000 ML IV (20:00)
[2018-10-13 20:15] LABS: MODE ROOM AIR; MetHgb Venous 0.3 %; Sample Type Blood venous; Site VENOUS LINE; Venous COHb 0.3 %; Venous Fraction OxyHgb 77.7 %; Venous Oxygen Sat 78.2 mmHG (55.0-75.0); Venous Total Hemglobin 9.6 g/dl
[2018-10-13] MEDS: LORAZEPAM 2 MG INJ IV (20:21)
[2018-10-13 20:53] LABS: ANION GAP 26 (5-13); BLOOD UREA NITROGEN 36 mg/dl (7-20); CALCIUM 9.2 mg/dl (8.4-10.2); CARBON DIOXIDE 11 mmol/L (21-31); CHLORIDE 100 mmol/L (97-110); CREATININE 8.67 mg/dl (0.44-1.00); Estimated GFR 5 mL/min (>60); MAGNESIUM 2.4 mg/dl (1.7-2.5); PHOSPHORUS 4.8 mg/dl (2.5-4.9); POTASSIUM 5.4 mmol/L (3.5-5.1); SODIUM 137 mmol/L (135-144)
[2018-10-13] MEDS: HYDROmorphONE 0.5 MG/0.5 ML SYG IV (21:02)
[2018-10-13 22:03] LABS: GLUCOSE 721 mg/dl (70-220)
[2018-10-13 22:13] LABS: ANION GAP 29 (5-13); BLOOD UREA NITROGEN 36 mg/dl (7-20); CALCIUM 9.2 mg/dl (8.4-10.2); CHLORIDE 99 mmol/L (97-110); CREATININE 8.55 mg/dl (0.44-1.00); Estimated GFR 6 mL/min (>60); MAGNESIUM 2.4 mg/dl (1.7-2.5); PHOSPHORUS 4.7 mg/dl (2.5-4.9); POTASSIUM 5.2 mmol/L (3.5-5.1); SODIUM 137 mmol/L (135-144)
[2018-10-13 22:30] LABS: CARBON DIOXIDE 9 mmol/L (21-31); GLUCOSE 728 mg/dl (70-220)
[2018-10-13] MEDS: METOCLOPRAMIDE 10 MG INJ IV (22:58)
[2018-10-13 23:07] LABS: FREE T4 (FREE THYROXINE) 1.12 ng/dl (0.79-2.35)
[2018-10-14 00:26] LABS: ANION GAP 22 (5-13); BLOOD UREA NITROGEN 38 mg/dl (7-20); CALCIUM 8.9 mg/dl (8.4-10.2); CARBON DIOXIDE 15 mmol/L (21-31); CHLORIDE 102 mmol/L (97-110); CREATININE 7.35 mg/dl (0.44-1.00); Estimated GFR 7 mL/min (>60); MAGNESIUM 2.2 mg/dl (1.7-2.5); PHOSPHORUS 3.9 mg/dl (2.5-4.9); POTASSIUM 4.2 mmol/L (3.5-5.1); SODIUM 139 mmol/L (135-144)
[2018-10-14] MEDS: ACCU-CHEK XX ×16 (00:30→17:48)
[2018-10-14 00:31] LABS: GLUCOSE 463 mg/dl (70-220)
[2018-10-14 00:58] LABS: MODE ROOM AIR; MetHgb Venous 0.4 %; Sample Type Blood venous; Site VENOUS LINE; Venous COHb 0.6 %; Venous Fraction OxyHgb 70.4 %; Venous Oxygen Sat 71.1 mmHG (55.0-75.0); Venous Total Hemglobin 9.1 g/dl
[2018-10-14] MEDS: D10/0.45% NACL + KCL 30 MEQ 1,000 ML IV ×2 (03:08→08:29)
[2018-10-14] MEDS: NS + KCL 30 MEQ 1,000 ML IV (03:09)
[2018-10-14 04:18] LABS: MODE ROOM AIR; MetHgb Venous 0.4 %; Sample Type Blood venous; Site A-Line; Venous COHb 0.7 %; Venous Fraction OxyHgb 70.9 %; Venous Oxygen Sat 71.7 mmHG (55.0-75.0)
[2018-10-14 05:30] LABS: ABNORMAL IP MESSAGE 1; ADD MAN DIFF? NO; BASOPHIL # 0.1 10^3/ul (0.0-0.1); EOSINOPHILS # 0.1 10^3/ul (0.0-0.5); EOSINOPHILS % 1.7 % (0.0-7.0); HEMATOCRIT 24.1 % (37.0-47.0); HEMOGLOBIN 7.8 g/dl (12.0-16.0); LYMPHOCYTES # 0.3 10^3/ul (0.8-2.9); LYMPHOCYTES % 4.4 % (15.0-51.0); MEAN CORPUSCULAR HEMOGLOBIN 30.1 pg (29.0-33.0); MEAN CORPUSCULAR HGB CONC 32.4 g/dl (32.0-37.0); MEAN CORPUSCULAR VOLUME 93.1 fl (82.0-101.0); MEAN PLATELET VOLUME 9.8 fl (7.4-10.4); MONOCYTE # 0.8 10^3/ul (0.3-0.9); MONOCYTES % 11.2 % (0.0-11.0); NEUTROPHIL # 5.9 10^3/ul (1.6-7.5); NEUTROPHILS % 81.1 % (39.0-77.0); PLATELET COUNT 178 10^3/UL (140-415); RED BLOOD COUNT 2.59 10^6/ul (4.20-5.40); RED CELL DISTRIBUTION WIDTH 17.2 % (11.5-14.5)
[2018-10-14 05:30] LABS: WHITE BLOOD COUNT 7.2 10^3/ul (4.8-10.8)
[2018-10-14 05:36] LABS: POSITIVE DIFF @See below
[2018-10-14] MEDS ORDERED: ONDANSETRON 4 MG INJ (05:38)
[2018-10-14 05:48] LABS: CHOL/HDL RATIO 2.3 RATIO; HDL CHOLESTEROL 46 mg/dl (34-82); LDL CHOLESTEROL,CALCULATED 48 mg/dl; TRIGLYCERIDES 62 mg/dl (0-149)
[2018-10-14 05:48] LABS: CHOLESTEROL 106 mg/dl (100-200)
[2018-10-14 05:49] LABS: ANION GAP 14 (5-13); BLOOD UREA NITROGEN 39 mg/dl (7-20); CARBON DIOXIDE 21 mmol/L (21-31); CHLORIDE 106 mmol/L (97-110); CREATININE 7.77 mg/dl (0.44-1.00); Estimated GFR 6 mL/min (>60); GLUCOSE 197 mg/dl (70-220); MAGNESIUM 2.2 mg/dl (1.7-2.5); PHOSPHORUS 3.2 mg/dl (2.5-4.9); POTASSIUM 4.4 mmol/L (3.5-5.1); SODIUM 141 mmol/L (135-144)
[2018-10-14 05:50] LABS: HEMOGLOBIN A1C 7.2 % (0-5.9)
[2018-10-14] MEDS ORDERED: FAMOTIDINE 20 MG INJ IV (06:00)
[2018-10-14] MEDS: Please discontinue ALL previous duplicate IV Fluid orders for DKA from ER XX (06:57)
[2018-10-14] MEDS: LACTATED RINGER'S 700 ML IV (06:57)
[2018-10-14] MEDS: SPIRONOLACTONE 50 MG TAB PO ×3 (06:57→21:11)
[2018-10-14] MEDS: ONDANSETRON 4 MG INJ IV (07:01)
[2018-10-14] MEDS: PANTOPRAZOLE (EC) 40 MG TAB PO ×2 (07:03→17:45)
[2018-10-14] MEDS: SEVELAMER CARBONATE 800 MG TABLET PO ×3 (07:35→17:46)
[2018-10-14 08:25] LABS: ANION GAP 12 (5-13); BLOOD UREA NITROGEN 39 mg/dl (7-20); CALCIUM 8.8 mg/dl (8.4-10.2); CARBON DIOXIDE 22 mmol/L (21-31); CHLORIDE 106 mmol/L (97-110); CREATININE 7.67 mg/dl (0.44-1.00); Estimated GFR 6 mL/min (>60); GLUCOSE 200 mg/dl (70-220); MAGNESIUM 2.1 mg/dl (1.7-2.5); PHOSPHORUS 3.2 mg/dl (2.5-4.9); POTASSIUM 4.5 mmol/L (3.5-5.1); SODIUM 140 mmol/L (135-144)
[2018-10-14 08:30] LABS: ANION GAP 13 (5-13); BLOOD UREA NITROGEN 39 mg/dl (7-20); CALCIUM 8.9 mg/dl (8.4-10.2); CARBON DIOXIDE 22 mmol/L (21-31); CHLORIDE 105 mmol/L (97-110); CREATININE 7.97 mg/dl (0.44-1.00); Estimated GFR 6 mL/min (>60); GLUCOSE 206 mg/dl (70-220); MAGNESIUM 2.1 mg/dl (1.7-2.5); PHOSPHORUS 3.2 mg/dl (2.5-4.9); POTASSIUM 4.4 mmol/L (3.5-5.1); SODIUM 140 mmol/L (135-144)
[2018-10-14] MEDS: ERYTHROMYCIN BASE (DR) 250 MG CAP PO ×3 (09:00→23:04)
[2018-10-14] MEDS: BACLOFEN 10 MG TAB PO ×3 (09:37→21:10)
[2018-10-14] MEDS: LOSARTAN 50 MG TAB PO (09:38)
[2018-10-14] MEDS: AMPICILLIN/SULB 1.5GM/NS (PMX) 50 ML IVPB ×2 (09:38→21:09)
[2018-10-14] MEDS: SUCRALFATE 1 GM TAB PO ×4 (09:38→21:09)
[2018-10-14] MEDS: MULTIVIT/CA CARB/B CMPLX/FA TAB PO (09:38)
[2018-10-14] MEDS: INSULIN REGULAR, HUMAN 100 UNIT in SOD CHLORIDE 0.9% 100 ML IV (09:42)
[2018-10-14] MEDS: LABETALOL 200 MG TAB PO ×2 (10:01→21:10)
[2018-10-14] MEDS: HYOSCYAMINE 0.125 MG SUBL TAB PO (10:01)
[2018-10-14 11:32] LABS: ANION GAP 11 (5-13); BLOOD UREA NITROGEN 38 mg/dl (7-20); CALCIUM 8.9 mg/dl (8.4-10.2); CARBON DIOXIDE 22 mmol/L (21-31); CHLORIDE 107 mmol/L (97-110); CREATININE 8.09 mg/dl (0.44-1.00); Estimated GFR 6 mL/min (>60); GLUCOSE 125 mg/dl (70-220); POTASSIUM 4.3 mmol/L (3.5-5.1); SODIUM 140 mmol/L (135-144)
[2018-10-14] MEDS: DIPHENHYDRAMINE 50 MG INJ IV ×2 (12:54→14:29)
[2018-10-14] MEDS ORDERED: DEXTROSE 50% 50 ML SYRINGE IV ×2 (13:00)
[2018-10-14] MEDS: DEXTROSE 50% 50 ML SYRINGE IV (13:42)
[2018-10-14] MEDS: HYDROmorphONE 0.5 MG/0.5 ML SYG IV ×2 (14:07→21:53)
[2018-10-14] MEDS ORDERED: INSULIN HUMAN REGULAR 100 UNIT in SOD CHLORIDE 0.9% 99 ML IV (15:00)
[2018-10-14] MEDS: INSULIN GLARGINE [LANTus] (100 UNITS/ML) SYG SC ×2 (15:21→23:35)
[2018-10-14] MEDS: HEPARIN 1000 UNITS/ML 10 ML INJ CATHETER (16:13)
[2018-10-14] MEDS: INSULIN ASPART [NOVOLOG] 3 ML PEN SC (17:50)
[2018-10-14] MEDS: hydrALAzine 20 MG INJ IV (20:15)
[2018-10-15] MEDS: HYDROmorphONE 0.5 MG/0.5 ML SYG IV ×6 (01:58→21:53)
[2018-10-15] MEDS: hydrALAzine 20 MG INJ IV ×3 (04:31→20:45)
[2018-10-15] MEDS: PANTOPRAZOLE (EC) 40 MG TAB PO ×2 (05:48→18:59)
[2018-10-15 07:18] LABS: ADD MAN DIFF? NO
[2018-10-15 07:21] LABS: WHITE BLOOD COUNT 9.2 10^3/ul (4.8-10.8)
[2018-10-15 07:21] LABS: ABNORMAL IP MESSAGE 1; BASOPHIL # 0.1 10^3/ul (0.0-0.1); BASOPHILS % 0.7 % (0.0-2.0); EOSINOPHILS # 0.3 10^3/ul (0.0-0.5); EOSINOPHILS % 2.7 % (0.0-7.0); HEMATOCRIT 24.7 % (37.0-47.0); HEMOGLOBIN 7.9 g/dl (12.0-16.0); LYMPHOCYTES # 0.5 10^3/ul (0.8-2.9); LYMPHOCYTES % 5.9 % (15.0-51.0); MEAN CORPUSCULAR HEMOGLOBIN 30.7 pg (29.0-33.0); MEAN CORPUSCULAR VOLUME 96.1 fl (82.0-101.0); MEAN PLATELET VOLUME 10.1 fl (7.4-10.4); MONOCYTE # 0.6 10^3/ul (0.3-0.9); MONOCYTES % 6.9 % (0.0-11.0); NEUTROPHIL # 7.6 10^3/ul (1.6-7.5); NEUTROPHILS % 83.4 % (39.0-77.0); PLATELET COUNT 213 10^3/UL (140-415); RED BLOOD COUNT 2.57 10^6/ul (4.20-5.40); RED CELL DISTRIBUTION WIDTH 18.2 % (11.5-14.5)
[2018-10-15 07:32] LABS: POSITIVE DIFF @See below
[2018-10-15] MEDS: ACCU-CHEK XX ×4 (07:42→17:43)
[2018-10-15] MEDS: INSULIN ASPART [NOVOLOG] 3 ML PEN SC ×7 (07:46→20:53)
[2018-10-15 07:50] LABS: ANION GAP 19 (5-13); BLOOD UREA NITROGEN 18 mg/dl (7-20); CALCIUM 9.1 mg/dl (8.4-10.2); CARBON DIOXIDE 17 mmol/L (21-31); CHLORIDE 100 mmol/L (97-110); CREATININE 4.96 mg/dl (0.44-1.00); Estimated GFR 10 mL/min (>60); GLUCOSE 297 mg/dl (70-220); POTASSIUM 4.9 mmol/L (3.5-5.1); SODIUM 136 mmol/L (135-144)
[2018-10-15] MEDS: SEVELAMER CARBONATE 800 MG TABLET PO ×3 (07:52→17:55)
[2018-10-15] MEDS: INSULIN GLARGINE [LANTus] (100 UNITS/ML) SYG SC ×2 (07:55→21:25)
[2018-10-15] MEDS: SPIRONOLACTONE 50 MG TAB PO ×2 (09:04→20:44)
[2018-10-15] MEDS: SUCRALFATE 1 GM TAB PO ×5 (09:04→20:44)
[2018-10-15] MEDS: ERYTHROMYCIN BASE (DR) 250 MG CAP PO ×3 (09:05→20:44)
[2018-10-15] MEDS: MULTIVIT/CA CARB/B CMPLX/FA TAB PO (09:05)
[2018-10-15] MEDS: LABETALOL 200 MG TAB PO ×2 (09:06→19:58)
[2018-10-15] MEDS: LOSARTAN 50 MG TAB PO (09:06)
[2018-10-15] MEDS: BACLOFEN 10 MG TAB PO ×3 (09:06→20:43)
[2018-10-15] MEDS: AMPICILLIN/SULB 1.5GM/NS (PMX) 50 ML IVPB ×2 (11:08→20:45)
[2018-10-15] MEDS: DIPHENHYDRAMINE 50 MG INJ IV ×2 (16:33→17:52)
[2018-10-15] MEDS: HEPARIN 1000 UNITS/ML 10 ML INJ CATHETER (19:50)
[2018-10-16] MEDS: DIPHENHYDRAMINE 50 MG INJ IV ×4 (01:19→20:54)
[2018-10-16] MEDS: HYDROmorphONE 0.5 MG/0.5 ML SYG IV ×6 (02:09→22:39)
[2018-10-16] MEDS: PANTOPRAZOLE (EC) 40 MG TAB PO ×2 (06:27→18:41)
[2018-10-16] MEDS: hydrALAzine 20 MG INJ IV (06:33)
[2018-10-16 07:11] LABS: ADD MAN DIFF? NO
[2018-10-16 07:19] LABS: WHITE BLOOD COUNT 6.3 10^3/ul (4.8-10.8)
[2018-10-16 07:19] LABS: ABNORMAL IP MESSAGE 1; BASOPHIL # 0.1 10^3/ul (0.0-0.1); BASOPHILS % 0.8 % (0.0-2.0); EOSINOPHILS # 0.4 10^3/ul (0.0-0.5); EOSINOPHILS % 5.8 % (0.0-7.0); HEMATOCRIT 25.5 % (37.0-47.0); HEMOGLOBIN 8.1 g/dl (12.0-16.0); LYMPHOCYTES # 0.5 10^3/ul (0.8-2.9); LYMPHOCYTES % 7.6 % (15.0-51.0); MEAN CORPUSCULAR HEMOGLOBIN 30.1 pg (29.0-33.0); MEAN CORPUSCULAR HGB CONC 31.8 g/dl (32.0-37.0); MEAN CORPUSCULAR VOLUME 94.8 fl (82.0-101.0); MONOCYTE # 0.7 10^3/ul (0.3-0.9); MONOCYTES % 11.2 % (0.0-11.0); NEUTROPHIL # 4.7 10^3/ul (1.6-7.5); NEUTROPHILS % 74.3 % (39.0-77.0); PLATELET COUNT 200 10^3/UL (140-415); RED BLOOD COUNT 2.69 10^6/ul (4.20-5.40); RED CELL DISTRIBUTION WIDTH 17.9 % (11.5-14.5)
[2018-10-16] MEDS: ACCU-CHEK XX ×3 (07:25→17:25)
[2018-10-16 07:34] LABS: ANION GAP 10 (5-13); BLOOD UREA NITROGEN 11 mg/dl (7-20); CALCIUM 8.7 mg/dl (8.4-10.2); CARBON DIOXIDE 27 mmol/L (21-31); CHLORIDE 103 mmol/L (97-110); CREATININE 3.18 mg/dl (0.44-1.00); Estimated GFR 17 mL/min (>60); GLUCOSE 64 mg/dl (70-220); POTASSIUM 4.4 mmol/L (3.5-5.1); SODIUM 140 mmol/L (135-144)
[2018-10-16 07:40] LABS: POSITIVE DIFF @See below
[2018-10-16] MEDS: INSULIN ASPART [NOVOLOG] 3 ML PEN SC ×7 (07:55→20:42)
[2018-10-16] MEDS: SUCRALFATE 1 GM TAB PO ×4 (08:10→20:41)
[2018-10-16] MEDS: ERYTHROMYCIN BASE (DR) 250 MG CAP PO ×3 (08:10→20:41)
[2018-10-16] MEDS: MULTIVIT/CA CARB/B CMPLX/FA TAB PO (08:11)
[2018-10-16] MEDS: SEVELAMER CARBONATE 800 MG TABLET PO ×3 (08:11→17:37)
[2018-10-16] MEDS: SPIRONOLACTONE 50 MG TAB PO ×2 (08:11→20:42)
[2018-10-16] MEDS: BACLOFEN 10 MG TAB PO ×3 (08:12→20:41)
[2018-10-16] MEDS: LOSARTAN 50 MG TAB PO (08:13)
[2018-10-16] MEDS: INSULIN GLARGINE [LANTus] (100 UNITS/ML) SYG SC ×2 (08:28→21:28)
[2018-10-16] MEDS: LABETALOL 200 MG TAB PO ×2 (09:00→21:56)
[2018-10-16] MEDS: AMPICILLIN/SULB 1.5GM/NS (PMX) 50 ML IVPB ×2 (09:23→20:41)
[2018-10-16] MEDS ORDERED: INSULIN ASPART [NOVOLOG] 3 ML PEN SC ×3 (13:00→17:55)
[2018-10-16] MEDS: ONDANSETRON INJ 8 MG in SOD CHLORIDE 0.9% 50 ML IV (14:45)
[2018-10-17] MEDS: HYDROmorphONE 0.5 MG/0.5 ML SYG IV (04:58)
[2018-10-17] MEDS: PANTOPRAZOLE (EC) 40 MG TAB PO ×2 (06:22→17:23)
[2018-10-17] MEDS: DIPHENHYDRAMINE 50 MG INJ IV ×5 (06:29→21:38)
[2018-10-17 06:48] LABS: ADD MAN DIFF? NO
[2018-10-17 06:56] LABS: ABNORMAL IP MESSAGE 1; BASOPHIL # 0.1 10^3/ul (0.0-0.1); BASOPHILS % 0.9 % (0.0-2.0); EOSINOPHILS # 0.5 10^3/ul (0.0-0.5); EOSINOPHILS % 6.9 % (0.0-7.0); HEMATOCRIT 29.6 % (37.0-47.0); HEMOGLOBIN 9.2 g/dl (12.0-16.0); LYMPHOCYTES # 0.4 10^3/ul (0.8-2.9); LYMPHOCYTES % 5.4 % (15.0-51.0); MEAN CORPUSCULAR HEMOGLOBIN 29.8 pg (29.0-33.0); MEAN CORPUSCULAR HGB CONC 31.1 g/dl (32.0-37.0); MEAN CORPUSCULAR VOLUME 95.8 fl (82.0-101.0); MEAN PLATELET VOLUME 10.4 fl (7.4-10.4); MONOCYTE # 0.6 10^3/ul (0.3-0.9); MONOCYTES % 7.7 % (0.0-11.0); NEUTROPHILS % 78.8 % (39.0-77.0); PLATELET COUNT 215 10^3/UL (140-415); RED BLOOD COUNT 3.09 10^6/ul (4.20-5.40); RED CELL DISTRIBUTION WIDTH 17.9 % (11.5-14.5)
[2018-10-17 06:56] LABS: WHITE BLOOD COUNT 7.6 10^3/ul (4.8-10.8)
[2018-10-17 07:02] LABS: POSITIVE DIFF @See below
[2018-10-17 07:32] LABS: ANION GAP 14 (5-13); BLOOD UREA NITROGEN 20 mg/dl (7-20); CALCIUM 9.6 mg/dl (8.4-10.2); CARBON DIOXIDE 26 mmol/L (21-31); CHLORIDE 101 mmol/L (97-110); Estimated GFR 11 mL/min (>60); GLUCOSE 138 mg/dl (70-220); POTASSIUM 4.5 mmol/L (3.5-5.1); SODIUM 141 mmol/L (135-144)
[2018-10-17] MEDS: ACCU-CHEK XX ×3 (07:58→17:27)
[2018-10-17] MEDS: LABETALOL 200 MG TAB PO ×2 (08:20→21:12)
[2018-10-17] MEDS: ERYTHROMYCIN BASE (DR) 250 MG CAP PO ×3 (08:21→21:10)
[2018-10-17] MEDS: MULTIVIT/CA CARB/B CMPLX/FA TAB PO (08:21)
[2018-10-17] MEDS: SUCRALFATE 1 GM TAB PO ×4 (08:21→21:12)
[2018-10-17] MEDS: SEVELAMER CARBONATE 800 MG TABLET PO ×3 (08:21→17:23)
[2018-10-17] MEDS: LOSARTAN 50 MG TAB PO (08:22)
[2018-10-17] MEDS: SPIRONOLACTONE 50 MG TAB PO ×2 (08:23→21:11)
[2018-10-17] MEDS: INSULIN ASPART [NOVOLOG] 3 ML PEN SC ×7 (08:31→21:00)
[2018-10-17] MEDS: BACLOFEN 10 MG TAB PO ×3 (08:35→21:11)
[2018-10-17] MEDS: AMPICILLIN/SULB 1.5GM/NS (PMX) 50 ML IVPB ×2 (08:36→21:10)
[2018-10-17] MEDS ORDERED: LORAZEPAM 1 MG TAB PO (09:00)
[2018-10-17] MEDS: INSULIN GLARGINE [LANTus] (100 UNITS/ML) SYG SC ×2 (10:10→21:00)
[2018-10-17] MEDS: LORAZEPAM 1 MG TAB SL ×2 (12:06→22:23)
[2018-10-17] MEDS ORDERED: DIPHENHYDRAMINE 50 MG INJ IM (13:30)
[2018-10-17] MEDS: HEPARIN 1000 UNITS/ML 10 ML INJ CATHETER (15:53)
[2018-10-17] MEDS: HYDROmorphONE 4 MG TAB PO (17:23)
[2018-10-17] MEDS: ONDANSETRON 4 MG INJ IV (21:38)
[2018-10-17] MEDS: HYDROmorphONE 2 MG TAB PO (22:10)
[2018-10-18] MEDS: PANTOPRAZOLE (EC) 40 MG TAB PO ×2 (05:28→18:54)
[2018-10-18] MEDS: HYDROmorphONE 2 MG TAB PO ×3 (05:29→22:52)
[2018-10-18 06:18] LABS: ADD MAN DIFF? NO
[2018-10-18 06:24] LABS: ABNORMAL IP MESSAGE 1; BASOPHIL # 0.1 10^3/ul (0.0-0.1); BASOPHILS % 1.1 % (0.0-2.0); EOSINOPHILS # 0.4 10^3/ul (0.0-0.5); EOSINOPHILS % 6.2 % (0.0-7.0); HEMATOCRIT 27.7 % (37.0-47.0); HEMOGLOBIN 8.5 g/dl (12.0-16.0); LYMPHOCYTES # 0.5 10^3/ul (0.8-2.9); LYMPHOCYTES % 6.9 % (15.0-51.0); MEAN CORPUSCULAR HEMOGLOBIN 30.1 pg (29.0-33.0); MEAN CORPUSCULAR HGB CONC 30.7 g/dl (32.0-37.0); MEAN CORPUSCULAR VOLUME 98.2 fl (82.0-101.0); MEAN PLATELET VOLUME 10.5 fl (7.4-10.4); MONOCYTE # 0.6 10^3/ul (0.3-0.9); MONOCYTES % 7.8 % (0.0-11.0); NEUTROPHIL # 5.5 10^3/ul (1.6-7.5); NEUTROPHILS % 77.6 % (39.0-77.0); PLATELET COUNT 188 10^3/UL (140-415); RED BLOOD COUNT 2.82 10^6/ul (4.20-5.40); RED CELL DISTRIBUTION WIDTH 17.7 % (11.5-14.5)
[2018-10-18 06:24] LABS: WHITE BLOOD COUNT 7.1 10^3/ul (4.8-10.8)
[2018-10-18 06:30] LABS: POSITIVE DIFF @See below
[2018-10-18 06:47] LABS: ANION GAP 18 (5-13); BLOOD UREA NITROGEN 20 mg/dl (7-20); CALCIUM 9.4 mg/dl (8.4-10.2); CARBON DIOXIDE 20 mmol/L (21-31); CHLORIDE 98 mmol/L (97-110); CREATININE 3.84 mg/dl (0.44-1.00); Estimated GFR 14 mL/min (>60); POTASSIUM 4.7 mmol/L (3.5-5.1); SODIUM 136 mmol/L (135-144)
[2018-10-18 06:54] LABS: GLUCOSE 456 mg/dl (70-220)
[2018-10-18] MEDS: INSULIN ASPART [NOVOLOG] 3 ML PEN SC ×7 (07:54→22:06)
[2018-10-18] MEDS: MULTIVIT/CA CARB/B CMPLX/FA TAB PO (09:03)
[2018-10-18] MEDS: ERYTHROMYCIN BASE (DR) 250 MG CAP PO ×3 (09:03→21:01)
[2018-10-18] MEDS: SEVELAMER CARBONATE 800 MG TABLET PO ×3 (09:03→17:40)
[2018-10-18] MEDS: LOSARTAN 50 MG TAB PO (09:04)
[2018-10-18] MEDS: LABETALOL 200 MG TAB PO ×2 (09:05→21:08)
[2018-10-18] MEDS: SPIRONOLACTONE 50 MG TAB PO ×2 (09:05→21:02)
[2018-10-18] MEDS: BACLOFEN 10 MG TAB PO ×3 (09:05→21:08)
[2018-10-18] MEDS: ACCU-CHEK XX ×3 (09:05→17:25)
[2018-10-18] MEDS: ONDANSETRON 4 MG INJ IV ×2 (09:16→22:52)
[2018-10-18] MEDS: INSULIN GLARGINE [LANTus] (100 UNITS/ML) SYG SC ×2 (09:28→21:15)
[2018-10-18 10:07] LABS: ADD UMIC YES; UR ASCORBIC ACID NEGATIVE (NEGATIVE); UR BACTERIA FEW /HPF (NONE SEEN); UR BILIRUBIN (Dip) NEGATIVE (NEGATIVE); UR BLOOD (Dip) NEGATIVE (NEGATIVE); UR CLARITY CLOUDY (CLEAR); UR COLOR YELLOW (YELLOW); UR GLUCOSE (Dip) 3+ mg/dL (NEGATIVE); UR KETONES (Dip) TRACE mg/dL (NEGATIVE); UR LEUKOCYTE ESTERASE (Dip) 2+ Leu/ul (NEGATIVE); UR MUCUS FEW /HPF (NONE SEEN); UR NITRITE (Dip) NEGATIVE (NEGATIVE); UR NONSQUAMOUS EPITHELIAL CELL 6 /HPF (NONE SEEN); UR RBC 10 /HPF (0-5); UR SPECIFIC GRAVITY (Dip) 1.009 (1.003-1.030); UR SQUAMOUS EPITHELIAL CELL MANY /HPF (FEW); UR TOTAL PROTEIN (Dip) 3+ mg/dl (NEGATIVE); UR UROBILINOGEN (Dip) NEGATIVE (NEGATIVE); UR WBC > 182 /HPF (0-5)
[2018-10-18 10:30] LABS: AMPHETAMINE/METHAMPHETAMINE Negative (NEGATIVE); BARBITURATES Negative (NEGATIVE); BENZODIAZEPINES Negative (NEGATIVE); CANNABINOIDS Negative (NEGATIVE); COCAINE Negative (NEGATIVE); OPIATES Positive (NEGATIVE)
[2018-10-18] MEDS: AMPICILLIN/SULB 1.5GM/NS (PMX) 50 ML IVPB ×2 (12:23→21:00)
[2018-10-18] MEDS: SUCRALFATE 1 GM TAB PO ×4 (12:24→21:01)
[2018-10-18] MEDS: DIPHENHYDRAMINE 50 MG INJ IV ×3 (13:12→22:52)
[2018-10-18] MEDS: CLONIDINE 0.3 MG/24 HR PATCH TRANSDERM (15:13)
[2018-10-18] MEDS: HEPARIN 1000 UNITS/ML 10 ML INJ CATHETER (17:06)
[2018-10-18] MEDS: CEFTRIAXONE 1 GM/50 ML (PMX) 50 ML IVPB (17:40)
[2018-10-19] MEDS: LORAZEPAM 1 MG TAB SL ×3 (00:21→12:28)
[2018-10-19] MEDS: LOPERAMIDE 2 MG CAP PO (00:56)
[2018-10-19] MEDS: hydrALAzine 20 MG INJ IV (01:34)
[2018-10-19] MEDS: HYDROmorphONE 2 MG TAB PO ×3 (02:58→11:18)
[2018-10-19] MEDS: PANTOPRAZOLE (EC) 40 MG TAB PO (05:36)
[2018-10-19 06:48] LABS: ADD MAN DIFF? NO
[2018-10-19 06:49] LABS: WHITE BLOOD COUNT 7.5 10^3/ul (4.8-10.8)
[2018-10-19 06:49] LABS: ABNORMAL IP MESSAGE 1; BASOPHIL # 0.1 10^3/ul (0.0-0.1); BASOPHILS % 0.8 % (0.0-2.0); EOSINOPHILS # 0.6 10^3/ul (0.0-0.5); EOSINOPHILS % 8.6 % (0.0-7.0); HEMATOCRIT 25.9 % (37.0-47.0); HEMOGLOBIN 8.3 g/dl (12.0-16.0); LYMPHOCYTES # 0.5 10^3/ul (0.8-2.9); LYMPHOCYTES % 6.6 % (15.0-51.0); MEAN CORPUSCULAR HEMOGLOBIN 30.4 pg (29.0-33.0); MEAN CORPUSCULAR VOLUME 94.9 fl (82.0-101.0); MEAN PLATELET VOLUME 10.1 fl (7.4-10.4); MONOCYTE # 0.7 10^3/ul (0.3-0.9); MONOCYTES % 9.1 % (0.0-11.0); NEUTROPHIL # 5.6 10^3/ul (1.6-7.5); NEUTROPHILS % 74.4 % (39.0-77.0); PLATELET COUNT 204 10^3/UL (140-415); RED BLOOD COUNT 2.73 10^6/ul (4.20-5.40); RED CELL DISTRIBUTION WIDTH 17.6 % (11.5-14.5)
[2018-10-19 07:00] LABS: POSITIVE DIFF @See below
[2018-10-19 07:18] LABS: ANION GAP 8 (5-13); BLOOD UREA NITROGEN 19 mg/dl (7-20); CALCIUM 8.9 mg/dl (8.4-10.2); CARBON DIOXIDE 27 mmol/L (21-31); CHLORIDE 100 mmol/L (97-110); CREATININE 3.11 mg/dl (0.44-1.00); Estimated GFR 18 mL/min (>60); GLUCOSE 318 mg/dl (70-220); POTASSIUM 4.7 mmol/L (3.5-5.1); SODIUM 135 mmol/L (135-144)
[2018-10-19] MEDS: ONDANSETRON 4 MG INJ IV ×2 (07:31→12:28)
[2018-10-19] MEDS: ACCU-CHEK XX ×2 (08:12→12:16)
[2018-10-19] MEDS: INSULIN GLARGINE [LANTus] (100 UNITS/ML) SYG SC (08:18)
[2018-10-19] MEDS: INSULIN ASPART [NOVOLOG] 3 ML PEN SC ×3 (08:18→12:33)
[2018-10-19] MEDS: AMPICILLIN/SULB 1.5GM/NS (PMX) 50 ML IVPB (08:21)
[2018-10-19] MEDS: ERYTHROMYCIN BASE (DR) 250 MG CAP PO ×2 (08:30→14:40)
[2018-10-19] MEDS: MULTIVIT/CA CARB/B CMPLX/FA TAB PO (08:30)
[2018-10-19] MEDS: LABETALOL 200 MG TAB PO (08:31)
[2018-10-19] MEDS: SPIRONOLACTONE 50 MG TAB PO (08:31)
[2018-10-19] MEDS: LOSARTAN 50 MG TAB PO (08:32)
[2018-10-19] MEDS: SEVELAMER CARBONATE 800 MG TABLET PO ×2 (08:33→12:31)
[2018-10-19] MEDS: SUCRALFATE 1 GM TAB PO ×2 (08:33→14:40)
[2018-10-19] MEDS: BACLOFEN 10 MG TAB PO ×2 (08:33→14:40)
[2018-10-19] MEDS ORDERED: EPOETIN ALFA-EPBX (ESRD) 10,000 UNIT/ML VIAL SC (17:00)
== END 2018-10-19 17:40 | disposition home or self-care (01) | DRG 637 ==
LOC: ICU 17:12 → E/R 14:00 → TEL 10-14 19:22
PROVIDERS: Hospitalist
PROC: 5A1D70Z Performance of Urinary Filtration, Intermittent, Less than 6 Hours Per Day (ICD-10-PCS; principal; 2018-10-14)
DX: E10.10 Type 1 diabetes mellitus with ketoacidosis without coma (principal); N18.6 End stage renal disease; I12.0 Hypertensive chronic kidney disease with stage 5 chronic kidney disease or end stage renal disease; I16.0 Hypertensive urgency; Z99.2 Dependence on renal dialysis; D63.1 Anemia in chronic kidney disease; S82.201D Unspecified fracture of shaft of right tibia, subsequent encounter for closed fracture with routine healing; H05.223 Edema of bilateral orbit; E10.319 Type 1 diabetes mellitus with unspecified diabetic retinopathy without macular edema; E10.43 Type 1 diabetes mellitus with diabetic autonomic (poly)neuropathy; E10.22 Type 1 diabetes mellitus with diabetic chronic kidney disease; K31.84 Gastroparesis; E10.42 Type 1 diabetes mellitus with diabetic polyneuropathy; G89.29 Other chronic pain; F41.9 Anxiety disorder, unspecified; E87.70 Fluid overload, unspecified; E55.9 Vitamin D deficiency, unspecified; H54.3 Unqualified visual loss, both eyes; Z91.14 Patient's other noncompliance with medication regimen
CPT/HCPCS: 36415; 71045; 80048; 80061; 80307; 81001; 82803; 82962; 83036; 83605; 83735; 84100; 84439; 84443; 84484; 85025; 87075; 90935; 93005; 96374; 96375; 99285-25